=== PATIENT | female | born 1990 | race African-American/Black ===

== ENCOUNTER 2019-01-12 18:25 | Emergency (ER) | payer SELFPAY ==
[~2019-01-12] VITALS: Ht 165.1 cm; Wt 70.3 kg
[~2019-01-12 18:25] MED LIST: OXYC1TAB22 PO; [UNRECOGNIZED DRUG - CODE] SQ
[2019-01-12] MEDS ORDERED: IV NORMAL SALINE 1000ML BAG 1,000 ML IV ONE (19:00)
[2019-01-12] MEDS ORDERED: HYDROmorphone 2 MG/ML VIAL IV ONE ×3 (19:15→21:15)
[2019-01-12] MEDS ORDERED: diphenhydrAMINE HCL 25 MG CAPSULE PO ONE (19:30)
[2019-01-12] MEDS ORDERED: ONDANSETRON PF 4 MG/2 ML VIAL. IV ONE (19:30)
[2019-01-12 19:41] LABS: BILIRUBIN,URINE NEGATIVE (NEG); CLARITY,URINE CLEAR; COLOR,URINE YELLOW; NITRITE,URINE NEGATIVE (NEG); PROTEIN,URINE NEGATIVE (NEG-TRACE); UROBILINOGEN,URINE 0.2 mg/dL (0.2 mg/dL)
[2019-01-12 19:49] LABS: RBC,URINE 0 /HPF (0-2)
[2019-01-12 19:50] LABS: BACTERIA,URINE MANY /HPF (0-FEW); SQUAMOUS EPITHELIAL CELL,UR MANY /LPF; WBC,URINE 0 /HPF (0-4)
[2019-01-12 20:27] LABS: BASO # 0.2 x10^3/uL (0.0-0.2); BASO % 2 % (0-3); EOS # 0.2 x10^3/uL (0.0-0.7); EOS % 2 % (0-3); HEMOGLOBIN 9.5 g/dL (12.0-15.5); LYMPH # 4.7 x10^3/uL (1.0-4.8); LYMPH % 46 % (24-48); MEAN CORPUSCULAR HEMOGLOBIN 26 pg (25-35); MEAN CORPUSCULAR HGB CONC 34 g/dL (31-37); MEAN CORPUSCULAR VOLUME 76 fL (79-100); MONO # 0.4 x10^3/uL (0.0-1.1); MONO % 4 % (0-9); NEUT # 4.8 x10^3uL (1.8-7.7); NEUT % 47 % (31-73); PLATELET COUNT 526 x10^3/uL (140-400); RED CELL DISTRIBUTION WIDTH 30.7 % (11.5-14.5); WHITE BLOOD COUNT 10.2 x10^3/uL (4.0-11.0)
[2019-01-12 20:28] LABS: CALCIUM 8.4 mg/dL (8.5-10.1); CREATININE 0.6 mg/dL (0.6-1.0); GFR 145.1; POTASSIUM 3.8 mmol/L (3.5-5.1)
--- NOTE | 2019-01-12 20:31 | PHYS DOC ---
Past Medical History Past Medical History: Anxiety, Depression, Sickle Cell Disease, Other Additional Past Medical Histor: APHORESIS-REG BLOOD TRANSFUSIONS Past Surgical History: Cholecystectomy Additional Past Surgical Histo: port in right Additional Information: Nonsmoker Alcohol Use: Occasionally Drug Use: None Adult General Chief Complaint Chief Complaint: PAIN CONTROL HPI HPI 28-year-old female presents from out of town (from [place]) with report of sickle cell crisis to right arm which is been ongoing for the last 3 days. Patient reports she has been trialing treating it with her outpatient pain medication without improvement. Patient has a treatment plan from [facility] including Dilaudid 2mg IVP x 3 doses and PO Benadryl and 8mg IVP Zofran. Patient reports she thinks staying in the basement of her apartment might have set it off. Denies any chest pain. Denies . Reports last menstrual period was end of last week of November. Denies other complaint. Review of Systems Review of Systems Constitutional: Denies fever or chills Eyes: Denies redness or eye pain HENT: Denies nasal congestion or sore throat Respiratory: Denies cough or shortness of breath Cardiovascular: Denies chest pain or palpitations GI: Denies abdominal pain, nausea, or vomiting : Denies dysuria or hematuria Musculoskeletal: Reports right arm pain Integument: Denies rash or skin lesions Neurologic: Denies headache, focal weakness or sensory changes Complete systems were reviewed and found to be within normal limits, except as documented in this note. Current Medications Current Medications Current Medications Medications (Trade) Dose Ordered Sig/Miguel Start Time Stop Time Status Last Admin Dose Admin Diphenhydramine HCl (Benadryl) 50 mg 1X ONCE 01/12/19 19:30 01/12/19 19:31 DC 01/12/19 19:42 50 MG Hydromorphone HCl (Dilaudid) 2 mg 1X ONCE 01/12/19 21:15 01/12/19 21:16 DC 01/12/19 21:14 2 MG Ondansetron HCl (Zofran) 8 mg 1X ONCE 01/12/19 19:30 01/12/19 19:31 DC 01/12/19 19:42 8 MG Sodium Chloride 1,000 ml @ 1,000 mls/hr 1X ONCE 01/12/19 19:00 01/12/19 19:59 DC 01/12/19 19:41 1,000 MLS/HR Allergies Allergies Allergies Coded Allergies Type Severity Reaction Last Updated Verified morphine Allergy Intermediate ITCHING 01/12/19 Yes Physical Exam Physical Exam Constitutional: Well developed, well nourished, no acute distress, non-toxic appearance, uncomfortable HENT: Normocephalic, atraumatic, oropharynx moist Eyes: PERRL, EOMI, conjunctiva normal, no discharge Neck: Normal range of motion, no tenderness, supple Cardiovascular: Heart rate normal, regular rhythm Lungs & Thorax: Bilateral breath sounds clear to auscultation, no wheezing Abdomen: Soft, no tenderness Skin: Warm, dry, no erythema, no rash Extremities: No tenderness, ROM intact, no edema Neurologic: Alert and oriented X 3, normal motor function, normal sensory function, no focal deficits noted Psychologic: Affect normal, judgement normal Current Patient Data Vital Signs Vital Signs Date Time Temp Pulse Resp B/P (MAP) Pulse Ox O2 Delivery O2 Flow Rate FiO2 01/12/19 21:02 93 16 99 01/12/19 19:00 98.6 145/96 (112) Room Air 98.6 Lab Values Laboratory Tests Test 01/12/19 19:28 01/12/19 20:00 Urine Collection Type Unknown Urine Color Yellow Urine Clarity Clear Urine pH 6.0 Urine Specific [place] 1.015 Urine Protein Negative mg/dL (NEG-TRACE) Urine Glucose (UA) Negative mg/dL (NEG) Urine Ketones (Stick) Negative mg/dL (NEG) Urine Blood Negative (NEG) Urine Nitrite Negative (NEG) Urine Bilirubin Negative (NEG) Urine Urobilinogen Dipstick 0.2 mg/dL (0.2 mg/dL) Urine Leukocyte Esterase Negative (NEG) Urine RBC 0 /HPF (0-2) Urine WBC 0 /HPF (0-4) Urine Squamous Epithelial Cells Many /LPF Urine Bacteria Many /HPF (0-FEW) Urine Mucus Mod /LPF Urine Test Negative (NEG) White Blood Count 10.2 x10^3/uL (4.0-11.0) Red Blood Count 3.70 x10^6/uL (3.50-5.70) Hemoglobin 9.5 g/dL (12.0-15.5) L Hematocrit 28.0 % (36.0-47.0) L Mean Corpuscular Volume 76 fL (79-100) L Mean Corpuscular Hemoglobin 26 pg (25-35) Mean Corpuscular Hemoglobin Concent 34 g/dL (31-37) Red Cell Distribution Width 30.7 % (11.5-14.5) H Platelet Count 526 x10^3/uL (140-400) H Neutrophils (%) (Auto) 47 % (31-73) Lymphocytes (%) (Auto) 46 % (24-48) Monocytes (%) (Auto) 4 % (0-9) Eosinophils (%) (Auto) 2 % (0-3) Basophils (%) (Auto) 2 % (0-3) Neutrophils # (Auto) 4.8 x10^3uL (1.8-7.7) Lymphocytes # (Auto) 4.7 x10^3/uL (1.0-4.8) Monocytes # (Auto) 0.4 x10^3/uL (0.0-1.1) Eosinophils # (Auto) 0.2 x10^3/uL (0.0-0.7) Basophils # (Auto) 0.2 x10^3/uL (0.0-0.2) Platelet Estimate Pending Absolute Reticulocyte Count 0.105 x10^6/uL (0.020-0.120) Percent Reticulocyte Count 2.8 % (0.5-2.3) H Immature Reticulocyte Fraction 0.49 (0.20-0.60) Prothrombin Time 13.0 SEC (11.7-14.0) Prothrombin Time INR 1.0 (0.8-1.1) PTT 26 SEC (24-38) Sodium Level 139 mmol/L (136-145) Potassium Level 3.8 mmol/L (3.5-5.1) Chloride Level 106 mmol/L (98-107) Carbon Dioxide Level 24 mmol/L (21-32) Anion Gap 9 (6-14) Blood Urea Nitrogen 10 mg/dL (7-20) Creatinine 0.6 mg/dL (0.6-1.0) Estimated GFR (Cockcroft-Gault) 145.1 BUN/Creatinine Ratio 17 (6-20) Glucose Level 85 mg/dL (70-99) Calcium Level 8.4 mg/dL (8.5-10.1) L Magnesium Level 1.8 mg/dL (1.8-2.4) Total Bilirubin 0.2 mg/dL (0.2-1.0) Aspartate Amino Transferase (AST) 15 U/L (15-37) Alanine Aminotransferase (ALT) 16 U/L (14-59) Alkaline Phosphatase 59 U/L (46-116) Total Protein 7.8 g/dL (6.4-8.2) Albumin 3.3 g/dL (3.4-5.0) L Albumin/Globulin Ratio 0.7 (1.0-1.7) L Lipase 122 U/L (73-393) Laboratory Tests 01/12/19 20:00 Laboratory Tests 01/12/19 20:00 EKG EKG [] Radiology/Procedures Radiology/Procedures [] Course & Med Decision Making Course & Med Decision Making Pertinent Lab studies reviewed. (See chart for details) Patient presents with history of present illness and physical exam consistent for sickle cell crisis exacerbation. Denies chest pain. Patient presents a treatment plan from her physician. Pain/nausea addressed. IV fluid hydration provided. Labs obtained and posted to chart. Retic count percentage slightly elevated. Patient stable for discharge with outpatient follow-up with PCP. Patient advised to continue her previously prescribed pain medications going forward. Discussed findings and plan with patient, who acknowledges understanding and agreement. Dragon Disclaimer Dragon Disclaimer This electronic medical record was generated, in whole or in part, using a voice recognition dictation system. Departure Departure Impression: Primary Impression: Sickle cell pain crisis Disposition: HOME, SELF-CARE Condition: STABLE Referrals: UNKNOWN PCP NAME (PCP) Patient Instructions: Sickle Cell Pain Crisis, [id number] LEEANN MARTELL DO Jan 12, 2019 20:31
[2019-01-12 20:35] LABS: ALBUMIN 3.3 g/dL (3.4-5.0); ALBUMIN/GLOBULIN RATIO 0.7 (1.0-1.7); MAGNESIUM 1.8 mg/dL (1.8-2.4); TOTAL BILIRUBIN 0.2 mg/dL (0.2-1.0); TOTAL PROTEIN 7.8 g/dL (6.4-8.2)
[2019-01-12 20:39] LABS: U PREG PATIENT NEGATIVE (NEG)
[2019-01-12 21:02] VITALS: BP 115/79
[2019-01-12 21:25] LABS: % BANDS 1 % (0-9); % EOS 2 % (0-5); % LYMPHS 32 % (24-48); % MONOS 6 % (0-10); % SEGS 59 % (35-66)
[2019-01-12 21:28] LABS: ANISOCYTOSIS MARKED; PLT ESTIMATE INCREASED (ADEQUATE); POLYCHROMASIA SLIGHT; SCHISTOCYTES OCC; TARGET CELLS FEW
[2019-01-12 21:29] LABS: SICKLE CELLS OCC
== END 2019-01-12 21:33 | disposition home or self-care (01) ==
LOC: ER 18:25
DX: D57.00 Hb-SS disease with crisis, unspecified (principal); M79.601 Pain in right arm; F41.9 Anxiety disorder, unspecified; F32.9 Major depressive disorder, single episode, unspecified; Z90.49 Acquired absence of other specified parts of digestive tract; Z88.5 Allergy status to narcotic agent
CPT/HCPCS: 36415; 80053; 81001; 81025; 83690; 83735; 85007; 85025; 85045; 85610; 85730; 87086; 96374; 96375; 96376; 99285; J1170; J2405; J7030; Q0163

== ENCOUNTER 2021-06-04 16:48 | Inpatient (IN) | payer MEDICARE ==
[~2021-06-04] VITALS: Ht 167.6 cm; Wt 67.1 kg
--- NOTE | 2021-06-04 22:39 | PHYS DOC ---
Past Medical History Past Medical History: Anxiety, Depression, Sickle Cell Disease, Other Additional Past Medical Histor: APHORESIS-REG BLOOD TRANSFUSIONS, PE (EARLINE COVINGTON APRN) Past Surgical History: Cholecystectomy Additional Past Surgical Histo: port in right AND LEFT (EARLINE COVINGTON APRN) Smoking Status: Never Smoker Alcohol Use: Occasionally Drug Use: None (EARLINE COVINGTON APRN) General Adult EDM: Chief Complaint: OTHER COMPLAINTS HPI: HPI: Patient is a 31-year-old female that presents today with bilateral leg pain due to a sickle cell crisis. Patient states pain started 3 days ago and has progressively gotten worse, she had unable to control her pain at home with her home pain medications and came here for further management. Patient states she takes OxyContin 10 mg at home when she has a crisis and that has not been helping her pain. Patient denies chest pain or shortness of air, she states she has had some nausea. She states her last crisis was in April 2021 and she was [facility], she states that she normally will get Dilaudid 2 mg x 3 doses, by mouth Benadryl, and IV fluids. Patient states that usually that will help with her pain. She is trying to est ablish care with the [facility] (EARLINE COVINGTON DIRECTOR OF FUNDRAISING) Review of Systems: Review of Systems: Constitutional: Denies fever or chills. [] Eyes: Denies change in visual acuity. [] HENT: Denies nasal congestion or sore throat. [] Respiratory: Denies cough or shortness of breath. [] Cardiovascular: Denies chest pain or edema. [] GI: Denies abdominal pain, nausea, vomiting, bloody stools or diarrhea. [] : Denies dysuria. [] Musculoskeletal: Bilateral leg pain Integument: Denies rash. [] Neurologic: Denies headache, focal weakness or sensory changes. [] Endocrine: Denies polyuria or polydipsia. [] Lymphatic: Denies swollen glands. [] Psychiatric: Denies depression or anxiety. [] (EARLINE COVINGTON DIRECTOR OF FUNDRAISING) Heart Score: C/O Chest Pain: N/A Risk Factors: Risk Factors: DM, Current or recent (<one month) smoker, HTN, HLP, family history of CAD, obesity. Risk Scores: Score 0 - 3: 2.5% MACE over next 6 weeks - Discharge Home Score 4 - 6: 20.3% MACE over next 6 weeks - Admit for Clinical Observation Score 7 - 10: 72.7% MACE over next 6 weeks - Early Invasive Strategies (EARLINE COVINGTON APRN) Current Medications: Current Medications Medications (Trade) Dose Ordered Sig/Miguel Start Time Stop Time Status Last Admin Dose Admin Diphenhydramine HCl (Benadryl) 25 mg 1X ONCE 06/04/21 23:00 06/04/21 23:01 Hydromorphone HCl (Dilaudid) 2 mg 1X ONCE 06/04/21 23:00 06/04/21 23:01 Ondansetron HCl (Zofran) 4 mg 1X ONCE 06/04/21 23:00 06/04/21 23:01 Sodium Chloride 1,000 ml @ 999 mls/hr 1X ONCE 06/04/21 23:00 06/05/21 00:00 (EARLINE COVINGTON APRN) Allergies: Allergies: Allergies Coded Allergies Type Severity Reaction Last Updated Verified morphine Allergy Intermediate ITCHING 01/12/19 Yes (EARLINE COVINGTON APRN) Physical Exam: PE: Constitutional: Well developed, well nourished, moderate distress HENT: Normocephalic, atraumatic, bilateral external ears normal, oropharynx moist, no oral exudates, nose normal. [] Eyes: PERRLA, EOMI, conjunctiva normal, no discharge. [] Neck: Normal range of motion, no tenderness, supple, no stridor. [] Cardiovascular:Heart rate regular rhythm, no murmur , pedal pulses 2+ Lungs & Thorax: Bilateral breath sounds clear to auscultation [] Abdomen: Bowel sounds normal, soft, no tenderness, no masses, no pulsatile masses. [] Skin: Warm, dry, no erythema, no rash. [] Back: No tenderness, no CVA tenderness. [] Extremities: No tenderness, no cyanosis, no clubbing, ROM intact, no edema. [] Neurologic: Alert and oriented X 3, normal motor function, normal sensory function, no focal deficits noted. [] Psychologic: Affect normal, judgement normal, mood normal. [] (EARLINE COVINGTON APRN) Current Patient Data: Labs: Laboratory Tests Test 06/04/21 22:00 White Blood Count 12.4 x10^3/uL Red Blood Count 4.38 x10^6/uL Hemoglobin 9.1 g/dL Hematocrit 28.9 % Mean Corpuscular Volume 65 fL Mean Corpuscular Hemoglobin 21 pg Mean Corpuscular Hemoglobin Concent 31 g/dL Red Cell Distribution Width 34.1 % Platelet Count 403 x10^3/uL Neutrophils (%) (Auto) 50 % Lymphocytes (%) (Auto) 44 % Monocytes (%) (Auto) 5 % Eosinophils (%) (Auto) 1 % Basophils (%) (Auto) 1 % Neutrophils # (Auto) 6.1 x10^3/uL Lymphocytes # (Auto) 5.4 x10^3/uL Monocytes # (Auto) 0.6 x10^3/uL Eosinophils # (Auto) 0.1 x10^3/uL Basophils # (Auto) 0.1 x10^3/uL Platelet Estimate Adequate Polychromasia Slight Hypochromasia Marked Poikilocytosis Slight Anisocytosis Marked Microcytosis Marked Spherocytes Mod Target Cells Many Schistocytes Occ Absolute Reticulocyte Count 0.072 x10^6/uL Percent Reticulocyte Count 1.7 % Immature Reticulocyte Fraction 0.51 Sodium Level 137 mmol/L Potassium Level 3.6 mmol/L Chloride Level 104 mmol/L Carbon Dioxide Level 25 mmol/L Anion Gap 8 Blood Urea Nitrogen 7 mg/dL Creatinine 0.6 mg/dL Estimated GFR (Cockcroft-Gault) 142.0 BUN/Creatinine Ratio 12 Glucose Level 86 mg/dL Calcium Level 8.3 mg/dL Total Bilirubin 0.4 mg/dL Aspartate Amino Transf (AST/SGOT) 17 U/L Alanine Aminotransferase (ALT/SGPT) 17 U/L Alkaline Phosphatase 76 U/L Total Protein 8.4 g/dL Albumin 3.6 g/dL Albumin/Globulin Ratio 0.8 Current Medications Medications (Trade) Dose Ordered Sig/Miguel Route PRN Reason Start Time Stop Time Status Last Admin Dose Admin Sodium Chloride 1,000 ml @ 999 mls/hr 1X ONCE IV 06/04/21 23:00 06/05/21 00:00 DC 06/04/21 23:08 Hydromorphone HCl (Dilaudid) 2 mg 1X ONCE IVP 06/04/21 23:00 06/04/21 23:01 DC 06/04/21 23:10 Diphenhydramine HCl (Benadryl) 25 mg 1X ONCE PO 06/04/21 23:00 06/04/21 23:01 DC 06/04/21 23:11 Ondansetron HCl (Zofran) 4 mg 1X ONCE IVP 06/04/21 23:00 06/04/21 23:01 DC 06/04/21 23:11 Hydromorphone HCl (Dilaudid) 2 mg 1X ONCE IVP 06/05/21 01:00 06/05/21 01:01 06/05/21 00:45 Vital Signs: Vital Signs Date Time Temp Pulse Resp B/P (MAP) Pulse Ox O2 Delivery O2 Flow Rate FiO2 06/04/21 21:42 98.7 85 20 117/63 (81) 99 Room Air 98.7 (EARLINE COVINGTON APRN) EKG: EKG: [] (EARLINE COVINGTON APRN) Radiology/Procedures: Radiology/Procedures: [] (EARLINE COVINGTON APRN) Course & Med Decision Making: Course & Med Decision Making Pertinent Labs and Imaging studies reviewed. (See chart for details) 0055 reassessed patient patient continues to have pain was just given a second dose of Dilaudid 2 mg, spoke with patient about possibly admitting for pain control patient is requesting that we wait to see if this pain medication helps. Signed patient out to Dr. Mathis. [] (EARLINE COVINGTON APRN) Course & Med Decision Making Patient reports pain is still present. Will admit for sickle cell pain crisis. I have spoken with the patient and/or caregivers. I have explained the patient's condition, diagnosis and treatment plan based on the information available to me at this time. I have answered the patient's and/or caregivers questions and answered any concerns. The patient and/or caregivers have as good an understanding of the patient's diagnosis, condition and treatment plan as can be expected at this point. The patient has been stabilized within the capability of the emergency department. The patient will be transported for further care and management or will be moved to an observation or inpatient service. I have communicated with the staff or medical practitioner taking over this patient's care. (JENIFFER MATHIS DO) Dragon Disclaimer: Dragon Disclaimer: This electronic medical record was generated, in whole or in part, using a voice recognition dictation system. (EARLINE COVINGTON APRN) Departure Departure Impression: Primary Impression: Sickle cell pain crisis Disposition: ADMITTED INPATIENT Admitting Physician: DONELL (Dr. summers) (JENIFFER MATHIS DO) Condition: STABLE Referrals: NO PCP (PCP) EARLINE COVINGTON APRN Jun 04, 2021 22:39 JENIFFER MATHIS DO Jun 05, 2021 02:19
[2021-06-04] MEDS ORDERED: ONDANSETRON PF 4 MG/2 ML VIAL. IVP ONE (23:00)
[2021-06-04] MEDS ORDERED: HYDROmorphone 2 MG/ML VIAL IVP ONE (23:00)
[2021-06-04] MEDS ORDERED: diphenhydrAMINE HCL 25 MG CAPSULE PO ONE (23:00)
[2021-06-04] MEDS ORDERED: IV NORMAL SALINE 1000ML BAG 1,000 ML IV ONE (23:00)
[2021-06-04 23:02] LABS: BASO # 0.1 x10^3/uL (0.0-0.2); BASO % 1 % (0-3); EOS # 0.1 x10^3/uL (0.0-0.7); EOS % 1 % (0-3); HEMATOCRIT 28.9 % (36.0-47.0); HEMOGLOBIN 9.1 g/dL (12.0-15.5); LYMPH # 5.4 x10^3/uL (1.0-4.8); LYMPH % 44 % (24-48); MEAN CORPUSCULAR HEMOGLOBIN 21 pg (25-35); MEAN CORPUSCULAR HGB CONC 31 g/dL (31-37); MEAN CORPUSCULAR VOLUME 65 fL (79-100); MONO # 0.6 x10^3/uL (0.0-1.1); MONO % 5 % (0-9); NEUT # 6.1 x10^3/uL (1.8-7.7); NEUT % 50 % (31-73); PLATELET COUNT 403 x10^3/uL (140-400); RED BLOOD COUNT 4.42 x10^6/uL (3.50-5.40); RED CELL DISTRIBUTION WIDTH 34.1 % (11.5-14.5); WHITE BLOOD COUNT 12.4 x10^3/uL (4.0-11.0)
[2021-06-04 23:09] LABS: CALCIUM 8.3 mg/dL (8.5-10.1); CREATININE 0.6 mg/dL (0.6-1.0); POTASSIUM 3.6 mmol/L (3.5-5.1)
[2021-06-04 23:16] LABS: ALBUMIN 3.6 g/dL (3.4-5.0); ALBUMIN/GLOBULIN RATIO 0.8 (1.0-1.7); TOTAL BILIRUBIN 0.4 mg/dL (0.2-1.0); TOTAL PROTEIN 8.4 g/dL (6.4-8.2)
[2021-06-04 23:39] LABS: PLT ESTIMATE ADEQUATE (ADEQUATE)
[2021-06-04 23:40] LABS: ANISOCYTOSIS MARKED; HYPOCHROMIA MARKED; MICROCYTOSIS MARKED; POIKILOCYTOSIS SLIGHT; POLYCHROMASIA SLIGHT
[2021-06-04 23:42] LABS: TARGET CELLS MANY
[2021-06-04 23:43] LABS: SCHISTOCYTES OCC; SPHEROCYTES MOD
[2021-06-05] MEDS ORDERED: HYDROmorphone 2 MG/ML VIAL IVP ONE ×2 (01:00→03:00)
[2021-06-05] MEDS ORDERED: KETOROLAC 15 MG/ML VIAL. IVP ONE (01:30)
[2021-06-05] MEDS ORDERED: IV NORMAL SALINE 1000ML BAG 1,000 ML IV ONE (03:00)
[2021-06-05] MEDS ORDERED: IV NORMAL SALINE 1000ML BAG 1,000 ML IV SCH (04:00)
[2021-06-05 04:20] VITALS: BP 150/90
[2021-06-05] MEDS ORDERED: OXYC1TAB22 PO (05:10)
[2021-06-05] MEDS ORDERED: RIVA20TA2 PO (05:10)
[2021-06-05] MEDS ORDERED: FOLI0.8C PO (05:10)
[2021-06-05] MEDS ORDERED: HYDROmorphone 2 MG/ML VIAL IVP PRN (06:30)
[2021-06-05 07:00] VITALS: BP 119/91
[2021-06-05] MEDS: diphenhydrAMINE 50 MG/ML VIAL IVP PRN ×3 (07:02→20:06)
--- NOTE | 2021-06-05 10:56 | NUR ---
SW following. Discussed with RN, pt from home, room air, regular diet. Pt newly admitted, awaiting plan of care. RN advised no SW needs at this time. SW will continue to follow.
[2021-06-05 11:00] VITALS: BP 129/84
--- NOTE | 2021-06-05 11:24 | HP ---
DATE OF SERVICE: 06/05/2021 ADMIT DATE: 06/05/2021 CHIEF COMPLAINT: Diffuse pain. HISTORY OF PRESENT ILLNESS: The patient is a pleasant 31-year-old female who has had sickle cell disease since she was 6 months old. She states she has been on chronic narcotics most of her life. She presented to the ER last night with leg pain and weakness and overall diffuse body aches. It progressively got worse over the past few days, rated at 10/10. I discussed the case with the ER physician. We have admitted the patient for sickle cell crisis treatment and we are going to be consulting Hematology. PAST MEDICAL HISTORY: Sickle cell disease, anxiety, depression, apheresis, pulmonary emboli, acute chest syndrome, sepsis, cholecystectomy, port in the right and left chest wall. ALLERGIES: MORPHINE. FAMILY HISTORY: Diabetes. SOCIAL HISTORY: She does not drink, smoke or take drugs. MEDICATIONS: Reviewed, please refer to the MRAD. REVIEW OF SYSTEMS: GENERAL: She complains of diffuse body aches. SKIN: No bruising, hair changes or rashes. EYES: No blurred, double or loss of vision. NOSE AND THROAT: No history of nosebleeds, hoarseness or sore throat. HEART: No history of palpitations, chest pain or shortness of breath on exertion. LUNGS: Denies cough, hemoptysis, wheezing or shortness of breath. GASTROINTESTINAL: Denies changes in appetite, nausea, vomiting, diarrhea or constipation. GENITOURINARY: No history of frequency, urgency, hesitancy or nocturia. NEUROLOGIC: Denies history of numbness, tingling, tremor or weakness. PSYCHIATRIC: No history of panic, anxiety or depression. ENDOCRINE: No history of heat or cold intolerance, polyuria or polydipsia. EXTREMITIES: Denies muscle weakness, joint pain, pain on walking or stiffness. PHYSICAL EXAMINATION: VITALS: Within normal limits and are stable. GENERAL: No apparent distress. Alert and oriented. HEENT: Normal cephalic atraumatic, external auditory canals are patent. Eyes: Extraocular muscles are intact, pupils are equally round and reactive to light and accommodation. MUSCULOSKELETAL: Well developed, well nourished, good range of motion. ENDOCRINE: No thyromegaly was palpated. LYMPHATICS: No cervical chain or axillary nodes were noted. HEMATOPOIETIC: No bruising. NECK: Supple, no JVD, no thyromegaly was noted. LUNGS: Clear to auscultation in all lung noyola without rhonchi or wheezing. HEART: RRR, S1, S2 present. Peripheral pulses intact, no obvious murmurs were noted. ABDOMEN: Soft, nontender. Positive bowel sounds no organomegaly, normal bowel sounds. EXTREMITIES: Without any cyanosis, clubbing, or edema. Pedal pulses intact, Homans sign is negative. NEUROLOGIC: Normal speech, normal tone. A and O x 3, moves all extremities, no obvious focal deficits. PSYCHIATRIC: Normal affect, normal mood. Stable. SKIN: No ulcerations or rashes, good skin turgor, no jaundice. VASCULAR: Good capillary refill, neurovascular bundle appears to be intact. LABORATORY DATA: White count is 12.4, hemoglobin 9.1, platelets 403. Retic count 1.7. Electrolytes are normal. ASSESSMENT AND PLAN: Diffuse body aches in a middle-aged female who has sickle cell disease, suspect possible sickle cell flare, although with her retic count only 1.7, I am not sure. For now, we are going to give her the benefit of doubt. I have resumed her home medicines including some Dilaudid 2 q. 2 p.r.n. We will trend her labs. I have consulted Dr. Rutherford. Home meds. DVT prophylaxis. Full code. I have ordered folic acid, IV fluids. FARHANA/WILLIS GALEANO: FARHANA/catrachito TID: [id number]
[2021-06-05] MEDS: HYDROmorphone 2 MG/ML VIAL IVP PRN ×5 (11:49→23:17)
[2021-06-05 15:00] VITALS: BP 125/93
[2021-06-05] MEDS: RIVAROXABAN 10 MG TABLET. PO SCH (18:00)
[2021-06-05 19:00] VITALS: BP 129/77
[2021-06-05] MEDS: IV NORMAL SALINE 1000ML BAG 1,000 ML IV SCH (19:35)
[2021-06-05 23:00] VITALS: BP 120/80
[2021-06-06 03:00] VITALS: BP 121/80
[2021-06-06] MEDS: HYDROmorphone 2 MG/ML VIAL IVP PRN ×5 (03:18→20:18)
[2021-06-06] MEDS: diphenhydrAMINE 50 MG/ML VIAL IVP PRN ×3 (03:20→19:40)
[2021-06-06 07:00] VITALS: BP 120/67
[2021-06-06] MEDS: FOLIC ACID 1 MG TABLET. PO SCH (07:57)
[2021-06-06] MEDS: IV NORMAL SALINE 1000ML BAG 1,000 ML IV SCH ×2 (07:58→19:43)
[2021-06-06] MEDS: oxyCODONE/APAP 10/325 1 TAB TABLET PO PRN ×2 (10:34→16:45)
--- NOTE | 2021-06-06 10:46 | PDOC ---
[employer] PROGRESS NOTE Date of Service DOS: DATE: 06/06/21 TIME: 10:44 Chief Complaint Chief Complaint Intractable pain Sickle cell crisis Sickle cell disease, anxiety, depression, apheresis, pulmonary emboli, acute chest syndrome, sepsis, cholecystectomy, port in the right and left chest wall. History of Present Illness History of Present Illness 06/06/2021 Patient seen and examined Discussed with RN Chart reviewed Vitals/I&O Vitals/I&O: Vital Signs Date Time Temp Pulse Resp B/P (MAP) Pulse Ox O2 Delivery O2 Flow Rate FiO2 06/06/21 08:00 Room Air 06/06/21 07:00 98.1 66 18 120/67 (84) 98 98.1 I & O 06/05/21 06/05/21 06/06/21 15:00 23:00 07:00 Intake Total 300 ml 480 ml Output Total 600 ml 1700 ml Balance -300 ml -1220 ml Physical Exam General: Alert, mild distress Heart: Regular rate Lungs: Clear Abdomen: Normal bowel sounds Extremities: No cyanosis Skin: No rashes Labs Labs: Laboratory Tests Test 06/05/21 12:54 Red Blood Count 4.36 x10^6/uL (3.50-5.70) Absolute Reticulocyte Count 0.061 x10^6/uL (0.020-0.120) Percent Reticulocyte Count 1.4 % (0.5-2.3) Immature Reticulocyte Fraction 0.53 (0.20-0.60) Assessment and Plan Assessmemt and Plan Problems Medical Problems: (1) Sickle cell pain crisis Status: Acute Intractable pain Sickle cell crisis Sickle cell disease, anxiety, depression, apheresis, pulmonary emboli, acute chest syndrome, sepsis, cholecystectomy, port in the right and left chest wall. Plan Sickle cell crisis protocol IV fluids Oxygen Folic acid Plus minus hydroxyurea depending on what hematology says As needed Dilaudid Trend labs especially her reticulocyte count Home meds DVT prophylaxis Full code Awaiting hematology input Comment Review of Relevant I have reviewed the following items michael (where applicable) has been applied. Medications: Current Medications Medications (Trade) Dose Ordered Sig/Miguel Route PRN Reason Start Time Stop Time Status Last Admin Dose Admin Hydromorphone HCl (Dilaudid) 2 mg PRN Q2HRS PRN IVP SEVERE PAIN 7-10 06/05/21 11:00 06/06/21 07:57 Folic Acid (Folic Acid) 1 mg DAILY PO 06/06/21 09:00 06/06/21 07:57 Sodium Chloride 1,000 ml @ 75 mls/hr [id number] IV 06/05/21 11:00 06/06/21 07:58 Oxycodone/ Acetaminophen (Percocet 10/325) 1 tab PRN Q6HRS PRN PO PAIN 06/06/21 10:15 06/06/21 10:34 Justifications for Admission Other Justification KRISHNA DENNY III DO Jun 06, 2021 10:46
[2021-06-06 11:00] VITALS: BP 126/77
[2021-06-06 15:00] VITALS: BP 135/85
[2021-06-06] MEDS: RIVAROXABAN 10 MG TABLET. PO SCH (18:00)
[2021-06-06 19:00] VITALS: BP 128/88
[2021-06-06 23:00] VITALS: BP 126/81
[2021-06-07] MEDS: oxyCODONE/APAP 10/325 1 TAB TABLET PO PRN ×3 (00:40→12:40)
[2021-06-07] MEDS: HYDROmorphone 2 MG/ML VIAL IVP PRN ×2 (02:11→08:50)
[2021-06-07] MEDS: diphenhydrAMINE 50 MG/ML VIAL IVP PRN ×2 (02:14→08:51)
[2021-06-07 03:09] VITALS: BP 137/95
[2021-06-07 07:00] VITALS: BP 123/74
[2021-06-07] MEDS: IV NORMAL SALINE 1000ML BAG 1,000 ML IV SCH (08:50)
[2021-06-07] MEDS: FOLIC ACID 1 MG TABLET. PO SCH (08:51)
[2021-06-07] MEDS ORDERED: HYDR2TAB31 PO (10:39)
[2021-06-07 11:00] VITALS: BP 141/94
--- NOTE | 2021-06-07 12:54 | DS ---
DATE OF DISCHARGE: 06/07/2021 ADMISSION DIAGNOSIS: Sickle cell crisis. DISCHARGE DIAGNOSES: Resolving sickle cell crisis, history of chronic pain, history of narcotic dependence, history of sepsis, history of acute chest syndrome, anxiety, depression, apheresis, history of pulmonary emboli, history of cholecystectomy, ports in the right chest and left chest, chronic anticoagulation. CONSULTS: Hematology. PROCEDURES: None. HOSPITAL COURSE: The patient is a pleasant, middle-aged female who presented with a sickle cell crisis. We gave her sickle cell protocol including oxygen, IV fluids, vitamins, p.r.n. pain meds and I checked her retic count daily. Basically, today she is back to her baseline and wants to go home. We plan to discharge. DISPOSITION: Home. ACTIVITY: As tolerated. DIET: Low sodium. MEDICATIONS: We will continue her home medications but she states she is out of her oxycodone other than 2 tablets. She states Dilaudid has been working better, so I gave her a prescription for 2 mg tablets, #20 one q.6 p.r.n. Continue her home Xarelto and her folic acid 10 mg a day. Total time 32 minutes. FARHANA/ZAY/PAUL DR: FARHANA/catrachito TID: [id number]
[2021-06-07 15:00] VITALS: BP 107/67
[2021-06-07] MEDS ORDERED: HEPARIN PF 500 UNIT/5 ML DISP.SYRIN. IVP ONE (16:00)
--- NOTE | 2021-06-07 16:32 | NUR ---
patient ready for discharge. R chest port flushed w/ heparin and de-accessed, needle intact. meds and follow up reviewed. prescription for PO dilaudid sent to pharmacy on file. pt does state she has 3 more percocet 10 at home. RN advised these should not be taken with dilaudid, that she is to take one or the other. patient verbalized understanding. stable upon dc. escorted out by ANGELA Cowan.
== END 2021-06-07 16:35 | disposition home or self-care (01) | DRG 812 ==
LOC: ER 16:48 → 5 SOUTH 06-05 02:14
PROVIDERS: ADMIT Internal Medicine; ATTEND Internal Medicine
DX: D57.09 Hb-SS disease with crisis with other specified complication (principal); F32.A Depression, unspecified; F41.9 Anxiety disorder, unspecified; Z79.01 Long term (current) use of anticoagulants; Z83.3 Family history of diabetes mellitus; Z86.711 Personal history of pulmonary embolism; Z90.49 Acquired absence of other specified parts of digestive tract; G89.29 Other chronic pain; Z87.891 Personal history of nicotine dependence
CPT/HCPCS: 36415; 80053; 85025; 85045; 96361; 96374; 96375; 96376; J1170; J1200; J1642; J2405; J7030; 99285-25; G0378; Q0163

== ENCOUNTER 2021-06-15 09:35 | Emergency (ER) | payer MEDICARE ==
[~2021-06-15] VITALS: Ht 162.6 cm; Wt 65.0 kg
[~2021-06-15 09:35] MED LIST changes: +FOLI0.8C PO; +HYDR2TAB31 PO; +RIVA20TA2 PO
[2021-06-15] MEDS ORDERED: 0.9 % SOD CHL for STERILE FIELD 10 ML DISP.SYRIN. ONE ×2 (10:22→10:41)
[2021-06-15] MEDS ORDERED: HYDROmorphone 2 MG/ML VIAL IVP ONE ×2 (10:30→12:00)
[2021-06-15] MEDS ORDERED: IV NORMAL SALINE 1000ML BAG 1,000 ML IV ONE (10:30)
[2021-06-15] MEDS ORDERED: diphenhydrAMINE 50 MG/ML VIAL IVP ONE (10:30)
--- NOTE | 2021-06-15 10:30 | PHYS DOC ---
Past Medical History Past Medical History: Anxiety, Depression, Sickle Cell Disease, Other Additional Past Medical Histor: APHORESIS-REG BLOOD TRANSFUSIONS, PE Past Surgical History: Cholecystectomy Additional Past Surgical Histo: port in right AND LEFT Smoking Status: Former Smoker Alcohol Use: Occasionally Drug Use: None General Adult EDM: Chief Complaint: PAIN CONTROL HPI: HPI: Patient is a 31-year-old female who presents emergency department for right leg pain. She reports that this is consistent with her sickle cell pain in the same location where she always has her pain. Patient reports that her last time she had her reticulocyte count was on June 07 when she was inpatient at this facility. After reviewing patient's chart, it appears that she was admitted and discharged on June 07 for sickle cell crisis and pain. Patient reports that she used to take 10 mg of Percocet at home but she is out of them. Patient has an appointment on at [facility] sickle cell clinic. Patient rates her pain 8 out of 10. No treatment prior to arrival. Patient denies shortness of breath, chest pain, nausea, vomiting. Patient is requesting Benadryl. Her vital signs are stable and she is in no acute distress. Review of Systems: Review of Systems: Respiratory: See HPI Cardiovascular: See HPI GI: See HPI Musculoskeletal: HPI Heart Score: C/O Chest Pain: No Risk Factors: Risk Factors: DM, Current or recent (<one month) smoker, HTN, HLP, family history of CAD, obesity. Risk Scores: Score 0 - 3: 2.5% MACE over next 6 weeks - Discharge Home Score 4 - 6: 20.3% MACE over next 6 weeks - Admit for Clinical Observation Score 7 - 10: 72.7% MACE over next 6 weeks - Early Invasive Strategies Current Medications: Current Medications Medications (Trade) Dose Ordered Sig/Miguel Start Time Stop Time Status Last Admin Dose Admin Sodium Chloride (NORMAL SALINE FLUSH for STERILE FIELD) 10 ml STK-MED ONCE 06/15/21 10:22 06/15/21 10:22 DC Allergies: Allergies: Allergies Coded Allergies Type Severity Reaction Last Updated Verified morphine Allergy Intermediate ITCHING 01/12/19 Yes Physical Exam: PE: Constitutional: Well developed, well nourished, no acute distress, non-toxic appearance. [] HENT: Normocephalic, atraumatic, bilateral external ears normal, oropharynx moist, no oral exudates, nose normal. [] Eyes: PERRL, EOMI, conjunctiva normal, no discharge. [] Neck: Normal range of motion, no tenderness, supple, no stridor. [] Cardiovascular:Heart rate regular rhythm, no murmur [] Lungs & Thorax: Bilateral breath sounds clear to auscultation [] Abdomen: Bowel sounds normal, soft, no tenderness, no masses, no pulsatile masses. [] Skin: Warm, dry, no erythema, no rash. [] Back: Normal range of motion Extremities: No tenderness, no cyanosis, no clubbing, ROM intact, no edema. [] Neurologic: Alert and oriented X 3, normal motor function, normal sensory function, no focal deficits noted. [] Psychologic: Affect normal, judgement normal, mood normal. [] Current Patient Data: Labs: Laboratory Tests Test 06/15/21 10:22 06/15/21 10:23 06/15/21 10:45 Urine Collection Type Void Urine Color Yellow Urine Clarity Clear Urine pH 6.5 Urine Specific [place] 1.020 Urine Protein 100 mg/dL Urine Glucose (UA) Negative mg/dL Urine Ketones (Stick) Negative mg/dL Urine Blood Negative Urine Nitrite Negative Urine Bilirubin Negative Urine Urobilinogen Dipstick 0.2 mg/dL Urine Leukocyte Esterase Negative Urine RBC 0 /HPF Urine WBC 1-4 /HPF Urine Squamous Epithelial Cells Mod /LPF Urine Bacteria 0 /HPF Urine Mucus Slight /LPF Bedside Urine HCG, Qualitative Hcg negative White Blood Count 10.8 x10^3/uL Red Blood Count 4.45 x10^6/uL Hemoglobin 9.1 g/dL Hematocrit 29.0 % Mean Corpuscular Volume 64 fL Mean Corpuscular Hemoglobin 20 pg Mean Corpuscular Hemoglobin Concent 31 g/dL Red Cell Distribution Width 33.0 % Platelet Count 331 x10^3/uL Neutrophils (%) (Auto) 59 % Lymphocytes (%) (Auto) 35 % Monocytes (%) (Auto) 4 % Eosinophils (%) (Auto) 1 % Basophils (%) (Auto) 1 % Neutrophils # (Auto) 6.4 x10^3/uL Lymphocytes # (Auto) 3.8 x10^3/uL Monocytes # (Auto) 0.4 x10^3/uL Eosinophils # (Auto) 0.1 x10^3/uL Basophils # (Auto) 0.1 x10^3/uL Platelet Estimate Pending Absolute Reticulocyte Count 0.067 x10^6/uL Percent Reticulocyte Count 1.5 % Immature Reticulocyte Fraction 0.55 Sodium Level 141 mmol/L Potassium Level 3.3 mmol/L Chloride Level 106 mmol/L Carbon Dioxide Level 25 mmol/L Anion Gap 10 Blood Urea Nitrogen 5 mg/dL Creatinine 0.7 mg/dL Estimated GFR (Cockcroft-Gault) 118.9 BUN/Creatinine Ratio 7 Glucose Level 90 mg/dL Calcium Level 8.1 mg/dL Total Bilirubin 0.5 mg/dL Aspartate Amino Transf (AST/SGOT) 16 U/L Alanine Aminotransferase (ALT/SGPT) 14 U/L Alkaline Phosphatase 79 U/L Total Protein 7.9 g/dL Albumin 3.4 g/dL Albumin/Globulin Ratio 0.8 Current Medications Medications (Trade) Dose Ordered Sig/Miguel Route PRN Reason Start Time Stop Time Status Last Admin Dose Admin Sodium Chloride (NORMAL SALINE FLUSH for STERILE FIELD) 10 ml STK-MED ONCE .ROUTE 06/15/21 10:22 06/15/21 10:22 DC Sodium Chloride 1,000 ml @ 1,000 mls/hr 1X ONCE IV 06/15/21 10:30 06/15/21 11:29 DC 06/15/21 10:46 Diphenhydramine HCl (Benadryl) 25 mg 1X ONCE IVP 06/15/21 10:30 06/15/21 10:31 DC 06/15/21 10:46 Hydromorphone HCl (Dilaudid) 2 mg 1X ONCE IVP 06/15/21 10:30 06/15/21 10:31 DC 06/15/21 10:46 Sodium Chloride (NORMAL SALINE FLUSH for STERILE FIELD) 10 ml STK-MED ONCE .ROUTE 06/15/21 10:41 06/15/21 10:41 DC Ondansetron HCl (Zofran) 4 mg 1X ONCE IVP 06/15/21 11:00 06/15/21 11:01 DC 06/15/21 11:23 Potassium Chloride (Klor-Con) 20 meq 1X ONCE PO 06/15/21 12:00 06/15/21 12:01 DC 06/15/21 12:14 Hydromorphone HCl (Dilaudid) 2 mg 1X ONCE IVP 06/15/21 12:00 06/15/21 12:01 DC 06/15/21 12:23 Vital Signs: Vital Signs Date Time Temp Pulse Resp B/P (MAP) Pulse Ox O2 Delivery O2 Flow Rate FiO2 06/15/21 10:05 97.8 81 12 118/79 (92) 100 Room Air 97.8 EKG: EKG: [] Radiology/Procedures: Radiology/Procedures: [] Course & Med Decision Making: Course & Med Decision Making Pertinent Labs and Imaging studies reviewed. (See chart for details) [] Patient presents to the emergency department for right leg pain. She reports that she has this pain with her sickle cell. Patient follows up on at [facility] with her sickle cell clinic. She is out of her pain medication at home and she normally takes 10 mg of Percocets. Patient denies any chest pain, shortness of breath, nausea or vomiting. Patient has no signs of dehydration as she is nontachycardic and has moist mucous membranes. Blood work performed in the ER to rule out sickle cell crisis. Patient treated with IV fluids, pain medication. Patient is requesting Benadryl. After reviewing patient's chart, it appears that when she was discharged from this facility on June 07, she was given 2 mg Dilaudid prescription for 5 days. Patient's hemoglobin, hematocrit and reticulocyte counts is consistent with previous lab findings. She was noted to have mild hypokalemia and this was replaced in the ER. Patient does not have any findings of aplastic crisis. Following treatment in the emergency department with IV pain medication, patient reports that she h as improvement in her pain. She reports that she would like to be discharged home. Patient is requesting pain medication to go home with, patient will need to follow-up with a pain management doctor if she requires any additional pain medication. I discussed with patient all findings and diagnostic testing as well as the need to follow-up with PCP for further evaluation and treatment or return to the ER if any new or worsening symptoms. Strict return precautions were also discussed at length. Patient voiced understanding and agreement with the plan. Patient is hemodynamically stable at the time of disposition. Dragon Disclaimer: Jose Disclaimer: This electronic medical record was generated, in whole or in part, using a voice recognition dictation system. Departure Departure Impression: Primary Impression: Sickle cell anemia with pain Disposition: HOME / SELF CARE / HOMELESS Condition: GOOD Referrals: NO PCP (PCP) Patient Instructions: Musculoskeletal Pain, Sickle Cell Anemia-Brief Additional Instructions: You were seen in the emergency department for pain control. Your lab work was consistent with previous lab findings it does not appear that you are in aplast ic crisis at this time. You are noted to have mildly decreased potassium level and this was replaced in the ER. Ensure that you are eating foods rich in potassium like bananas. You will need to follow-up with the pain management doctor if you are requiring any pain medication for your chronic disease. Follow-up with [facility] on as previously scheduled. Increase your fluids and ensure adequate hydration. Return to the emergency department if you develop worsening of your pain, shortness of breath, chest pain, intractable nausea or vomiting. EMERGENCY DEPARTMENT GENERAL DISCHARGE INSTRUCTIONS Thank you for coming to [facility] Emergency Department (ED) today and trusting us with you care. We trust that you had a positive experience in our Emergency Department. If you wish to speak to the department management, you may call the Director at [phone]. YOUR FOLLOW UP INSTRUCTIONS ARE FOLLOWS: 1. Do you have a private Doctor? If you do not have a private doctor, please ask for a resource list of physicians or clinics that may be able to assist you with follow up care. 2. The Emergency Physicain has interpreted your x-rays. The X-Ray specialist will also review them. If there is a change in the findings, you will be notified in 48 hours when at all possible. 3. A lab test or culture has been done, your results will be reviewed and you will be notified if you need a change in treatment. ADDITIONAL INSTRUCTIONS AND INFORMATION: 1. Your care today has been supervised by a physician who is specially trained in emergency care. Many problems require more than one evaluation for a complete diagnosis and treatment. We recommend that you schedule your follow up appointment as recommended to ensure complete treatment of you illness or injury. If you are unable to obtain follow up care and continue to have a problem, or if your condition worsens, we recommend that you return to the ED. 2. We are not able to safely determine your condition over the phone nor are we able to give sound medical advice over the phone. For these safety reasons, if you call for medical advice we will ask you to come to the ED for further evaluation. 3. If you have any questions regarding these discharge instructions please call the ED at [phone]. SAFETY INFORMATION: In the interest of safety, wellness, and injury prevention; we encourage you to wear your sealbelt, if you smoke; quite smoking, and we encourage family to use a protective helmet for bicycling and other sporting events that present an increased risk for head injury. IF YOUR SYMPTOMS WORSEN OR NEW SYMPTOMS DEVELOP, OR YOU HAVE CONCERNS ABOUT YOUR CONDITION; OR IF YOUR CONDITION WORSENS WHILE YOU ARE WAITING FOR YOUR FOLLOW UP APPOINTMENT; EITHER CONTACT YOUR PRIMARY CARE DOCTOR, THE PHYSICIAN WHOSE NAME AND NUMBER YOU WERE GIVEN, OR RETURN TO THE ED IMMEDIATELY. TOREY SANCHEZ APRN Jun 15, 2021 10:30
[2021-06-15] MEDS ORDERED: ONDANSETRON PF 4 MG/2 ML VIAL. IVP ONE (11:00)
[2021-06-15 11:16] LABS: BILIRUBIN,URINE NEGATIVE (NEG); CLARITY,URINE CLEAR; COLOR,URINE YELLOW; NITRITE,URINE NEGATIVE (NEG); PH,URINE 6.5 (<5.0-8.0); PROTEIN,URINE 100 mg/dL (NEG-TRACE); UROBILINOGEN,URINE 0.2 mg/dL (0.2 mg/dL)
[2021-06-15 11:17] LABS: BASO # 0.1 x10^3/uL (0.0-0.2); BASO % 1 % (0-3); EOS # 0.1 x10^3/uL (0.0-0.7); EOS % 1 % (0-3); HEMOGLOBIN 9.1 g/dL (12.0-15.5); LYMPH # 3.8 x10^3/uL (1.0-4.8); LYMPH % 35 % (24-48); MEAN CORPUSCULAR HEMOGLOBIN 20 pg (25-35); MEAN CORPUSCULAR HGB CONC 31 g/dL (31-37); MEAN CORPUSCULAR VOLUME 64 fL (79-100); MONO # 0.4 x10^3/uL (0.0-1.1); MONO % 4 % (0-9); NEUT # 6.4 x10^3/uL (1.8-7.7); NEUT % 59 % (31-73); PLATELET COUNT 331 x10^3/uL (140-400); RED BLOOD COUNT 4.52 x10^6/uL (3.50-5.40); WHITE BLOOD COUNT 10.8 x10^3/uL (4.0-11.0)
[2021-06-15 11:19] LABS: CALCIUM 8.1 mg/dL (8.5-10.1); CREATININE 0.7 mg/dL (0.6-1.0); GFR 118.9; POTASSIUM 3.3 mmol/L (3.5-5.1)
[2021-06-15 11:24] LABS: ALBUMIN 3.4 g/dL (3.4-5.0); ALBUMIN/GLOBULIN RATIO 0.8 (1.0-1.7); TOTAL BILIRUBIN 0.5 mg/dL (0.2-1.0); TOTAL PROTEIN 7.9 g/dL (6.4-8.2)
[2021-06-15 11:46] LABS: BACTERIA,URINE 0 /HPF (0-FEW); RBC,URINE 0 /HPF (0-2)
[2021-06-15] MEDS ORDERED: POTASSIUM CHLORIDE 20 MEQ TABLET.ER. PO ONE (12:00)
[2021-06-15 13:21] VITALS: BP 109/73
[2021-06-15 13:28] LABS: % BASOS 2 % (0-3); % EOS 1 % (0-5); % LYMPHS 17 % (24-48); % MONOS 4 % (0-10); % SEGS 76 % (35-66); NUCLEATED RBC 3; PLT ESTIMATE ADEQUATE (ADEQUATE)
[2021-06-15 13:31] LABS: ANISOCYTOSIS MOD; HYPOCHROMIA MOD; POIKILOCYTOSIS MOD
[2021-06-15 13:32] LABS: MICROCYTOSIS MOD; OVALOCYTES PRESENT; TARGET CELLS MOD
== END 2021-06-15 13:54 | disposition home or self-care (01) ==
LOC: ER 09:35
DX: D57.00 Hb-SS disease with crisis, unspecified (principal); Z90.49 Acquired absence of other specified parts of digestive tract; Z87.891 Personal history of nicotine dependence; Z88.5 Allergy status to narcotic agent
CPT/HCPCS: 36415; 80053; 81001; 81025; 85007; 85025; 85045; 96361; 96374; 96375; 96376; 99285; J1170; J1200; J2405; J7030

== ENCOUNTER 2021-08-12 11:37 | Emergency (ER) | payer MEDICARE, MEDICAID | END 2021-08-12 12:33 | disposition left against medical advice (07) | LOC: ER 11:37 | DX: M79.606 Pain in leg, unspecified (principal); Z53.21 Procedure and treatment not carried out due to patient leaving prior to being seen by health care provider ==

== ENCOUNTER 2021-08-15 15:59 | Emergency (ER) | payer MEDICARE, MEDICAID ==
[~2021-08-15] VITALS: Ht 162.6 cm; Wt 65.1 kg
[2021-08-15] MEDS ORDERED: IV NORMAL SALINE 1000ML BAG 1,000 ML IV ONE (17:00)
--- NOTE | 2021-08-15 17:00 | PHYS DOC ---
Past Medical History Past Medical History: Anxiety, Depression, Sickle Cell Disease, Other Additional Past Medical Histor: APHORESIS-REG BLOOD TRANSFUSIONS,PE,BLOOD/BONE INFECTION Past Surgical History: Cholecystectomy, Other Additional Past Surgical Histo: port in right AND LEFT Smoking Status: Never Smoker Alcohol Use: Occasionally Drug Use: None General Adult EDM: Chief Complaint: PAIN CONTROL HPI: HPI: Patient is a 31-year-old female that presents today with right leg pain related to her sickle cell disease. Patient states her pain started on Tuesday and Tuesday of this week, she states she had a blood exchange due to her sickle cell disease at the sickle cell clinic on she states they did give her pain medicine there while having her treatment, she states the pain has not resolved and that is why she presents to the emergency department. She states she took a Percocet 10 mg at 130 today and has not helped resolve her pain. Patient is seen at the [facility] sickle cell clinic. Review of Systems: Review of Systems: Constitutional: Denies fever or chills. [] Eyes: Denies change in visual acuity. [] HENT: Denies nasal congestion or sore throat. [] Respiratory: Denies cough or shortness of breath. [] Cardiovascular: Denies chest pain or edema. [] GI: Denies abdominal pain, nausea, vomiting, bloody stools or diarrhea. [] : Denies dysuria. [] Musculoskeletal: Right leg pain Integument: Denies rash. [] Neurologic: Denies headache, focal weakness or sensory changes. [] Endocrine: Denies polyuria or polydipsia. [] Lymphatic: Denies swollen glands. [] Psychiatric: Denies depression or anxiety. [] Heart Score: C/O Chest Pain: N/A Risk Factors: Risk Factors: DM, Current or recent (<one month) smoker, HTN, HLP, family history of CAD, obesity. Risk Scores: Score 0 - 3: 2.5% MACE over next 6 weeks - Discharge Home Score 4 - 6: 20.3% MACE over next 6 weeks - Admit for Clinical Observation Score 7 - 10: 72.7% MACE over next 6 weeks - Early Invasive Strategies Allergies: Allergies: Allergies Coded Allergies Type Severity Reaction Last Updated Verified morphine Allergy Intermediate ITCHING 01/12/19 Yes Physical Exam: PE: Constitutional: Well developed, well nourished, no acute distress, non-toxic appearance. [] HENT: Normocephalic, atraumatic, bilateral external ears normal, oropharynx moist, no oral exudates, nose normal. [] Eyes: PERRLA, EOMI, conjunctiva normal, no discharge. [] Neck: Normal range of motion, no tenderness, supple, no stridor. [] Cardiovascular:Heart rate regular rhythm, no murmur [] Lungs & Thorax: Bilateral breath sounds clear to auscultation [] Abdomen: Bowel sounds normal, soft, no tenderness, no masses, no pulsatile masses. [] Skin: Warm, dry, no erythema, no rash. [] Back: No tenderness, no CVA tenderness. [] Extremities: Patient has steady gait while walking, right leg warm to touch skin is dry due to the weather patient states she has not put enough lotion on there, dorsalis pedis and posterior tib pulses present 2+, neurovascular intact at the distal portion of the toes. Neurologic: Alert and oriented X 3, normal motor function, normal sensory function, no focal deficits noted. [] Psychologic: Affect normal, judgement normal, mood normal. [] Current Patient Data: Labs: Laboratory Tests Test 08/15/21 17:21 White Blood Count 17.4 x10^3/uL Red Blood Count 3.81 x10^6/uL Hemoglobin 10.1 g/dL Hematocrit 29.8 % Mean Corpuscular Volume 77 fL Mean Corpuscular Hemoglobin 26 pg Mean Corpuscular Hemoglobin Concent 34 g/dL Red Cell Distribution Width 24.4 % Platelet Count 374 x10^3/uL Neutrophils (%) (Auto) 70 % Lymphocytes (%) (Auto) 22 % Monocytes (%) (Auto) 5 % Eosinophils (%) (Auto) 2 % Basophils (%) (Auto) 1 % Neutrophils # (Auto) 12.2 x10^3/uL Lymphocytes # (Auto) 3.8 x10^3/uL Monocytes # (Auto) 0.9 x10^3/uL Eosinophils # (Auto) 0.4 x10^3/uL Basophils # (Auto) 0.1 x10^3/uL Platelet Estimate Adequate Polychromasia Mod Anisocytosis Mod Spherocytes Few Target Cells Mod Absolute Reticulocyte Count 0.161 x10^6/uL Percent Reticulocyte Count 4.2 % Immature Reticulocyte Fraction 0.55 Sodium Level 139 mmol/L Potassium Level 3.9 mmol/L Chloride Level 106 mmol/L Carbon Dioxide Level 23 mmol/L Anion Gap 10 Blood Urea Nitrogen 9 mg/dL Creatinine 0.6 mg/dL Estimated GFR (Cockcroft-Gault) 142.0 BUN/Creatinine Ratio 15 Glucose Level 88 mg/dL Calcium Level 7.7 mg/dL Total Bilirubin 0.6 mg/dL Aspartate Amino Transf (AST/SGOT) 13 U/L Alanine Aminotransferase (ALT/SGPT) 15 U/L Alkaline Phosphatase 73 U/L Total Protein 7.7 g/dL Albumin 3.4 g/dL Albumin/Globulin Ratio 0.8 Current Medications Medications (Trade) Dose Ordered Sig/Miguel Route PRN Reason Start Time Stop Time Status Last Admin Dose Admin Sodium Chloride 1,000 ml @ 999 mls/hr 1X ONCE IV 08/15/21 17:00 08/15/21 18:00 DC 08/15/21 17:31 Hydromorphone HCl (Dilaudid) 2 mg 1X ONCE IVP 08/15/21 17:15 08/15/21 17:16 DC 08/15/21 17:32 Diphenhydramine HCl (Benadryl) 25 mg 1X ONCE PO 08/15/21 17:15 08/15/21 17:16 DC 08/15/21 17:31 Hydromorphone HCl (Dilaudid) 2 mg 1X ONCE IVP 08/15/21 18:30 08/15/21 18:48 DC 08/15/21 19:10 Vital Signs: Vital Signs Date Time Temp Pulse Resp B/P (MAP) Pulse Ox O2 Delivery O2 Flow Rate FiO2 08/15/21 20:05 93 16 114/61 (78) 99 Room Air 08/15/21 19:15 82 21 116/77 (90) 96 Room Air 08/15/21 19:10 25 97 Room Air 08/15/21 18:28 80 15 121/72 (88) 97 Room Air 08/15/21 18:02 16 96 Room Air 08/15/21 17:58 80 12 129/79 (96) 96 Room Air 08/15/21 17:32 16 99 Room Air 08/15/21 17:28 122/77 (92) 98 Room Air 08/15/21 16:07 98.3 102 17 125/77 (93) 95 Room Air 98.3 Vital Signs Date Time Temp Pulse Resp B/P (MAP) Pulse Ox O2 Delivery O2 Flow Rate FiO2 08/15/21 16:07 98.3 102 17 125/77 (93) 95 Room Air 98.3 EKG: EKG: [] Radiology/Procedures: Radiology/Procedures: [] Course & Med Decision Making: Course & Med Decision Making Pertinent Labs and Imaging studies reviewed. (See chart for details) 1939 reassessment of patient patient states her pain is 3-4 out of 10 when asked if she feels comfortable going home or wishes to be admitted she is electing to go home and manage her sickle cell crisis at home with her oral pain medications. Patient states she only has about 4 Percocets left, will write for 10 more until she can follow-up in our clinic on Tuesday. Instructed her to follow-up Tuesday with her sickle cell clinic to let them know that she was still having pain. Increase her by mouth fluids stay in warm environment. Patient is encouraged to return to the emergency department for increased chest pain, shortness of breath, or development of a fever. Patient verbalized understanding of this and is agreeable to the plan of care. Jose Disclaimer: Jose Disclaimer: This electronic medical record was generated, in whole or in part, using a voice recognition dictation system. Departure Departure Impression: Primary Impression: Sickle cell pain crisis Disposition: HOME / SELF CARE / HOMELESS Condition: STABLE Referrals: NO PCP (PCP) Patient Instructions: Sickle Cell Pain Crisis Additional Instructions: Percocet take 1 to 2 tablets every 6 hours as needed for pain. Use with caution may cause drowsiness do not operate heavy machinery or make important decisions while taking this medication. Increase by mouth fluids stay well-hydrated. Return to the emergency department for increased chest pain, increased shortness of breath or development of shortness of breath, or development of fever. Follow-up with your clinic at the [facility] for further management of her sickle cell disease. Scripts Oxycodone/Apap 10-325 (PERCOCET 10-325 MG TABLET ) 1 Each Tablet 1 TAB PO PRN Q6HRS PRN for PAIN, #10 TAB 0 Refills Prov: EARLINE COVINGTON MED SPECIALIST 08/15/21 EARLINE COVINGTON APRN Aug 15, 2021 17:00
[2021-08-15] MEDS ORDERED: diphenhydrAMINE HCL 25 MG CAPSULE PO ONE (17:15)
[2021-08-15] MEDS ORDERED: HYDROmorphone 2 MG/ML INJ. IVP ONE ×2 (17:15→18:30)
[2021-08-15 17:39] LABS: BASO # 0.1 x10^3/uL (0.0-0.2); BASO % 1 % (0-3); EOS # 0.4 x10^3/uL (0.0-0.7); EOS % 2 % (0-3); HEMATOCRIT 29.8 % (36.0-47.0); HEMOGLOBIN 10.1 g/dL (12.0-15.5); LYMPH # 3.8 x10^3/uL (1.0-4.8); LYMPH % 22 % (24-48); MEAN CORPUSCULAR HEMOGLOBIN 26 pg (25-35); MEAN CORPUSCULAR HGB CONC 34 g/dL (31-37); MEAN CORPUSCULAR VOLUME 77 fL (79-100); MONO # 0.9 x10^3/uL (0.0-1.1); MONO % 5 % (0-9); NEUT # 12.2 x10^3/uL (1.8-7.7); NEUT % 70 % (31-73); PLATELET COUNT 374 x10^3/uL (140-400); RED BLOOD COUNT 3.86 x10^6/uL (3.50-5.40); RED CELL DISTRIBUTION WIDTH 24.4 % (11.5-14.5); WHITE BLOOD COUNT 17.4 x10^3/uL (4.0-11.0)
[2021-08-15 17:49] LABS: CALCIUM 7.7 mg/dL (8.5-10.1); CREATININE 0.6 mg/dL (0.6-1.0); POTASSIUM 3.9 mmol/L (3.5-5.1)
[2021-08-15 17:54] LABS: ALBUMIN 3.4 g/dL (3.4-5.0); ALBUMIN/GLOBULIN RATIO 0.8 (1.0-1.7); TOTAL BILIRUBIN 0.6 mg/dL (0.2-1.0); TOTAL PROTEIN 7.7 g/dL (6.4-8.2)
[2021-08-15 19:03] LABS: ANISOCYTOSIS MOD; PLT ESTIMATE ADEQUATE (ADEQUATE); TARGET CELLS MOD
[2021-08-15 19:05] LABS: POLYCHROMASIA MOD; SPHEROCYTES FEW
[2021-08-15] MEDS ORDERED: OXYC1TAB22 PO (19:45)
[2021-08-15] MEDS ORDERED: HEPARIN PF 500 UNIT/5 ML DISP.SYRIN. IVP ONE (20:00)
[2021-08-15 20:05] VITALS: BP 114/61
== END 2021-08-15 20:07 | disposition home or self-care (01) ==
LOC: ER 15:59
DX: D57.00 Hb-SS disease with crisis, unspecified (principal)
CPT/HCPCS: 36415; 80053; 85025; 85045; 96361; 96374; 96375; 96376; 99284; J1170; J1642; J7030; Q0163

== ENCOUNTER 2021-09-18 11:36 | Inpatient (IN) | payer MEDICARE, MEDICAID ==
[~2021-09-18] VITALS: Ht 162.6 cm; Wt 60.8 kg
[2021-09-18] MEDS ORDERED: ONDANSETRON PF 4 MG/2 ML VIAL. IVP ONE (12:00)
[2021-09-18] MEDS ORDERED: IV NORMAL SALINE 1000ML BAG 1,000 ML IV ONE ×2 (12:00→14:15)
[2021-09-18] MEDS ORDERED: diphenhydrAMINE 50 MG/ML VIAL IVP ONE ×2 (12:00→14:30)
[2021-09-18] MEDS ORDERED: HYDROmorphone 2 MG/ML INJ. IVP ONE ×3 (12:00→15:15)
--- NOTE | 2021-09-18 12:08 | ED.ADGEN ---
Past Medical History Past Medical History: Anxiety, Depression, Sickle Cell Disease, Other Additional Past Medical Histor: APHORESIS-REG BLOOD TRANSFUSIONS,PE,BLOOD/BONE INFECTION Past Surgical History: Cholecystectomy, Other Additional Past Surgical Histo: port in right AND LEFT Smoking Status: Never Smoker Alcohol Use: Occasionally Drug Use: None General Adult EDM: Chief Complaint: LOWER EXT PAIN HPI: HPI: Patient is a 31 year old female coming in for right leg pain that she attributes to her sickle cell. Patient states that with her sickle cell she typically has pain crisis in her upper and lower extremities. Patient has been taking her Percocet tens without relief. Patient states that she has had diarrhea recently and has not been drinking water because it makes her have to use the restroom. Denies any fevers, vomiting, chest pain or cough. No known sick contacts, no raw or undercooked foods, no recent travel. Patient sickle-cell is managed at by Dr. Ortiz Review of Systems: Review of Systems: All other systems within normal limits except for as noted in the HPI Current Medications: Current Medications Medications (Trade) Dose Ordered Sig/Miguel Start Time Stop Time Status Last Admin Dose Admin Diphenhydramine HCl (Benadryl) 25 mg 1X ONCE 09/18/21 14:30 09/18/21 14:31 DC 09/18/21 14:35 25 MG Hydromorphone HCl (Dilaudid) 2 mg 1X ONCE 09/18/21 14:00 09/18/21 14:01 DC 09/18/21 14:01 2 MG Ondansetron HCl (Zofran) 4 mg 1X ONCE 09/18/21 12:00 09/18/21 12:04 DC 09/18/21 12:30 4 MG Sodium Chloride 1,000 ml @ 1,000 mls/hr 1X ONCE 09/18/21 14:15 09/18/21 15:14 DC 09/18/21 14:38 1,000 MLS/HR Allergies: Allergies: Allergies Coded Allergies Type Severity Reaction Last Updated Verified morphine Allergy Intermediate ITCHING 01/12/19 Yes Physical Exam: PE: Constitutional: Well developed, well nourished, no acute distress, non-toxic appearance. [] HENT: Normocephalic, atraumatic, bilateral external ears normal, nose normal. [] Eyes: PERRLA, conjunctiva normal, no discharge. [] Neck: No rigidity, supple, no stridor. [] Cardiovascular: Regular rate and rhythm, brisk cap refill [] Lungs & Thorax: Non labored symmetric respirations, no tachypnea or respiratory distress [] Abdomen: Soft, nondistended. Skin: Warm, dry, no erythema, no rash. [] Back: Unremarkable Extremities: No deformities, range of motion grossly intact, no lower extremity edema. No calf tenderness. Pain not worse with palpation of right thigh and lower leg Neurologic: Alert and oriented X 3, no focal deficits noted. [] Psychologic: Affect normal, judgement normal, mood normal. [] Current Patient Data: Labs: Laboratory Tests Test 09/18/21 12:00 09/18/21 12:05 09/18/21 12:18 White Blood Count 11.5 x10^3/uL (4.0-11.0) H Red Blood Count 3.83 x10^6/uL (3.50-5.70) Hemoglobin 9.7 g/dL (12.0-15.5) L Hematocrit 29.9 % (36.0-47.0) L Mean Corpuscular Volume 79 fL (79-100) Mean Corpuscular Hemoglobin 26 pg (25-35) Mean Corpuscular Hemoglobin Concent 33 g/dL (31-37) Red Cell Distribution Width 24.2 % (11.5-14.5) H Platelet Count 497 x10^3/uL (140-400) H Neutrophils (%) (Auto) 58 % (31-73) Lymphocytes (%) (Auto) 34 % (24-48) Monocytes (%) (Auto) 3 % (0-9) Eosinophils (%) (Auto) 4 % (0-3) H Basophils (%) (Auto) 1 % (0-3) Neutrophils # (Auto) 6.7 x10^3/uL (1.8-7.7) Lymphocytes # (Auto) 3.9 x10^3/uL (1.0-4.8) Monocytes # (Auto) 0.3 x10^3/uL (0.0-1.1) Eosinophils # (Auto) 0.4 x10^3/uL (0.0-0.7) Basophils # (Auto) 0.1 x10^3/uL (0.0-0.2) Segmented Neutrophils % 63 % (35-66) Band Neutrophils % 5 % (0-9) Lymphocytes % 19 % (24-48) L Monocytes % 6 % (0-10) Eosinophils % 7 % (0-5) H Platelet Estimate Increased (ADEQUATE) Large Platelets Few Giant Platelets Occ Hypochromasia Mod Anisocytosis Mod Target Cells Many Ovalocytes Occ Absolute Reticulocyte Count 0.111 x10^6/uL (0.020-0.120) Percent Reticulocyte Count 2.9 % (0.5-2.3) H Immature Reticulocyte Fraction 0.36 (0.20-0.60) Sodium Level 140 mmol/L (136-145) Potassium Level 4.0 mmol/L (3.5-5.1) Chloride Level 108 mmol/L (98-107) H Carbon Dioxide Level 22 mmol/L (21-32) Anion Gap 10 (6-14) Blood Urea Nitrogen 4 mg/dL (7-20) L Creatinine 0.6 mg/dL (0.6-1.0) Estimated GFR (Cockcroft-Gault) 142.0 BUN/Creatinine Ratio 7 (6-20) Glucose Level 91 mg/dL (70-99) Calcium Level 7.8 mg/dL (8.5-10.1) L Total Bilirubin 0.2 mg/dL (0.2-1.0) Aspartate Amino Transferase (AST) 21 U/L (15-37) Alanine Aminotransferase (ALT) 25 U/L (14-59) Alkaline Phosphatase 70 U/L (46-116) Total Protein 7.9 g/dL (6.4-8.2) Albumin 3.2 g/dL (3.4-5.0) L Albumin/Globulin Ratio 0.7 (1.0-1.7) L Urine Collection Type Unknown Urine Color Yellow Urine Clarity Cloudy Urine pH 5.5 (<5.0-8.0) Urine Specific [place] 1.015 (1.000-1.030) Urine Protein Negative mg/dL (NEG-TRACE) Urine Glucose (UA) Negative mg/dL (NEG) Urine Ketones (Stick) Negative mg/dL (NEG) Urine Blood Large (NEG) Urine Nitrite Negative (NEG) Urine Bilirubin Negative (NEG) Urine Urobilinogen Dipstick 0.2 mg/dL (0.2 mg/dL) Urine Leukocyte Esterase Trace (NEG) Urine RBC 11-20 /HPF (0-2) Urine WBC 0 /HPF (0-4) Urine Squamous Epithelial Cells Few /LPF Urine Bacteria 0 /HPF (0-FEW) POC Urine HCG, Qualitative Hcg negative (Negative) Laboratory Tests 09/18/21 12:00 Laboratory Tests 09/18/21 12:00 Vital Signs: Vital Signs Date Time Temp Pulse Resp B/P (MAP) Pulse Ox O2 Delivery O2 Flow Rate FiO2 09/18/21 14:21 73 152/65 (94) 98 Room Air 09/18/21 11:45 98.3 18 98.3 EKG: EKG: [] Heart Score: C/O Chest Pain: No Risk Factors: Risk Factors: DM, Current or recent (<one month) smoker, HTN, HLP, family history of CAD, obesity. Risk Scores: Score 0 - 3: 2.5% MACE over next 6 weeks - Discharge Home Score 4 - 6: 20.3% MACE over next 6 weeks - Admit for Clinical Observation Score 7 - 10: 72.7% MACE over next 6 weeks - Early Invasive Strategies Radiology/Procedures: Radiology/Procedures: [] Course & Med Decision Making: Course & Med Decision Making Pertinent Labs and Imaging studies reviewed. (See chart for details) [] Jose Disclaimer: Jose Disclaimer: This electronic medical record was generated, in whole or in part, using a voice recognition dictation system. Departure Departure Impression: Primary Impression: Sickle cell pain crisis Disposition: ADMITTED INPATIENT Admitting Physician: HIMMeseret Condition: STABLE Referrals: NO PCP (PCP) SANFORD CAMARENA MD Sep 18, 2021 12:08
[2021-09-18 12:27] LABS: CALCIUM 7.8 mg/dL (8.5-10.1); CREATININE 0.6 mg/dL (0.6-1.0)
[2021-09-18 12:32] LABS: ALBUMIN 3.2 g/dL (3.4-5.0); ALBUMIN/GLOBULIN RATIO 0.7 (1.0-1.7); TOTAL BILIRUBIN 0.2 mg/dL (0.2-1.0); TOTAL PROTEIN 7.9 g/dL (6.4-8.2)
[2021-09-18 12:38] LABS: BILIRUBIN,URINE NEGATIVE (NEG); CLARITY,URINE CLOUDY; COLOR,URINE YELLOW; NITRITE,URINE NEGATIVE (NEG); PH,URINE 5.5 (<5.0-8.0); PROTEIN,URINE NEGATIVE (NEG-TRACE); UROBILINOGEN,URINE 0.2 mg/dL (0.2 mg/dL)
[2021-09-18 12:39] LABS: BASO # 0.1 x10^3/uL (0.0-0.2); BASO % 1 % (0-3); EOS # 0.4 x10^3/uL (0.0-0.7); EOS % 4 % (0-3); HEMATOCRIT 29.9 % (36.0-47.0); HEMOGLOBIN 9.7 g/dL (12.0-15.5); LYMPH # 3.9 x10^3/uL (1.0-4.8); LYMPH % 34 % (24-48); MEAN CORPUSCULAR HEMOGLOBIN 26 pg (25-35); MEAN CORPUSCULAR HGB CONC 33 g/dL (31-37); MEAN CORPUSCULAR VOLUME 79 fL (79-100); MONO # 0.3 x10^3/uL (0.0-1.1); MONO % 3 % (0-9); NEUT # 6.7 x10^3/uL (1.8-7.7); NEUT % 58 % (31-73); PLATELET COUNT 497 x10^3/uL (140-400); RED BLOOD COUNT 3.76 x10^6/uL (3.50-5.40); RED CELL DISTRIBUTION WIDTH 24.2 % (11.5-14.5); WHITE BLOOD COUNT 11.5 x10^3/uL (4.0-11.0)
[2021-09-18 12:53] LABS: BACTERIA,URINE 0 /HPF (0-FEW); WBC,URINE 0 /HPF (0-4)
[2021-09-18] MEDS: IV NORMAL SALINE 1000ML BAG 1,000 ML IV SCH ×2 (15:30→16:00)
[2021-09-18] MEDS ORDERED: diphenhydrAMINE 50 MG/ML VIAL IVP PRN (15:30)
[2021-09-18] MEDS ORDERED: ACETAMINOPHEN 325 MG TABLET. PO PRN ×2 (15:30→15:45)
[2021-09-18] MEDS ORDERED: ONDANSETRON PF 4 MG/2 ML VIAL. IVP PRN ×2 (15:30→15:45)
[2021-09-18] MEDS ORDERED: HYDROmorphone 2 MG/ML INJ. IVP PRN (15:30)
--- NOTE | 2021-09-18 15:42 | PDOC1 ---
History and Physical Date of Service: DOS: DATE: 09/18/21 TIME: 15:36 Chief Complaint: Chief Complain: Lower extremity pain History of Present Illness: HPI: 31-year-old female with past medical history of sickle cell disease who has bilateral Port-A-Cath and has followed with [facility] with Dr. Mark for a pheresis. She states that she left the window open last night and she developed right lower extremity pain due to cold air and she is not getting pain relief from her Percocets. She also states she has had diarrhea recently and she has not been drinking as much water because every time she drinks water she has to go to the bathroom. Denies any vomiting, fevers, chest pain, shortness of breath sick contacts or eating rare exotic foods or recent travel. Past Medical/Surgical History: PMH/PSH: Past Medical History: Anxiety, Depression, Sickle Cell Disease, APHORESIS-REG BLOOD TRANSFUSIONS,PE, history of MRSA bacteremia infection, bilateral pleural effusions Past Surgical History: Cholecystectomy, port in right AND LEFT, left wrist fracture at 9 years old, chest tubes placed bilaterally for pleural effusions Allergies: Allergies: Coded Allergies: morphine (Verified Allergy, Intermediate, ITCHING, 01/12/19) Family History: Family History: Reviewed with no relevant findings in the chart Social History: Social History: Smoking Status: Never Smoker Alcohol Use: Occasionally Drug Use: None Current Medications: Current Medications Current Medications Sodium Chloride 1,000 ml @ 1,000 mls/hr 1X ONCE IV Last administered on 09/18/21at 12:30; Start 09/18/21 at 12:00; Stop 09/18/21 at 12:59; Status DC Ondansetron HCl (Zofran) 4 mg 1X ONCE IVP Last administered on 09/18/21at 12:30; Start 09/18/21 at 12:00; Stop 09/18/21 at 12:04; Status DC Hydromorphone HCl (Dilaudid) 2 mg 1X ONCE IVP Last administered on 09/18/21at 12:33; Start 09/18/21 at 12:00; Stop 09/18/21 at 12:04; Status DC Diphenhydramine HCl (Benadryl) 25 mg 1X ONCE IVP Last administered on 09/18/21at 12:31; Start 09/18/21 at 12:00; Stop 09/18/21 at 12:04; Status DC Hydromorphone HCl (Dilaudid) 2 mg 1X ONCE IVP Last administered on 09/18/21at 14:01; Start 09/18/21 at 14:00; Stop 09/18/21 at 14:01; Status DC Sodium Chloride 1,000 ml @ 1,000 mls/hr 1X ONCE IV Last administered on 09/18/21at 14:38; Start 09/18/21 at 14:15; Stop 09/18/21 at 15:14; Status DC Diphenhydramine HCl (Benadryl) 25 mg 1X ONCE IVP Last administered on 09/18/21at 14:35; Start 09/18/21 at 14:30; Stop 09/18/21 at 14:31; Status DC Hydromorphone HCl (Dilaudid) 1 mg 1X ONCE IVP Last administered on 09/18/21at 15:33; Start 09/18/21 at 15:15; Stop 09/18/21 at 15:17; Status DC Ondansetron HCl (Zofran) 4 mg PRN Q8HRS PRN IVP NAUSEA/VOMITING; Start 09/18/21 at 15:30; Stop 09/19/21 at 15:29 Sodium Chloride 1,000 ml @ 100 mls/hr Q10H IV ; Start 09/18/21 at 15:30; Stop 09/19/21 at 15:29 Acetaminophen (Tylenol) 650 mg PRN Q4HRS PRN PO FEVER > 100.3'F; Start 09/18/21 at 15:30; Stop 09/19/21 at 15:29 Diphenhydramine HCl (Benadryl) 25 mg PRN Q6HRS PRN IVP ITCHING; Start 09/18/21 at 15:30 Hydromorphone HCl (Dilaudid) 2 mg PRN Q4HRS PRN IVP PAIN; Start 09/18/21 at 15:30 Hydromorphone HCl (Dilaudid) 2 mg QIDPRN PRN PO pain; Start 09/18/21 at 15:45; Status UNV Oxycodone/ Acetaminophen (Percocet 10/325) 1 tab Q6HRS PRN PO PAIN; Start 09/18/21 at 15:45; Status UNV Oxycodone/ Acetaminophen (Percocet 10/325) 1 tab PRN Q6HRS PRN PO PAIN; Start 09/18/21 at 15:45; Status UNV Non-Formulary Medication (Folic Acid ) 10 mg DAILY PO ; Start 09/19/21 at 09:00; Status UNV Non-Formulary Medication (Rivaroxaban (Xarelto)) 1 tab DAILY PO ; Start 09/19/21 at 09:00; Status UNV Active Scripts Active Percocet 10-325 Mg Tablet (Oxycodone/Acetaminophen) 1 Each Tablet 1 Tab PO PRN Q6HRS PRN Dilaudid (Hydromorphone Hcl) 2 Mg Tablet 1 Tab PO QIDPRN PRN MDD 4 Tablet(s) 5 Days Reported Folic Acid 0.8 Mg Capsule 10 Mg PO DAILY Xarelto (Rivaroxaban) 20 Mg Tablet 1 Tab PO DAILY 30 Days with food Percocet 10-325 Mg Tablet (Oxycodone/Acetaminophen) 1 Each Tablet 1 Tab PO PRN Q4-6HRS PRN MDD 6 Tablet(s) 5 Days ROS: Review of Systems Review of System REVIEW OF SYSTEMS: GENERAL: Denies weakness SKIN: No bruising, hair changes or rashes. EYES: No blurred, double or loss of vision. NOSE AND THROAT: No history of nosebleeds, hoarseness or sore throat. HEART: No history of palpitations, chest pain or shortness of breath on exertion. LUNGS: Denies cough, hemoptysis, wheezing or shortness of breath. GASTROINTESTINAL: Denies changes in appetite, nausea, vomiting, diarrhea or constipation. GENITOURINARY: No history of frequency, urgency, hesitancy or nocturia. NEUROLOGIC: Denies history of numbness, tingling, or tremor. PSYCHIATRIC: No history of panic, anxiety or depression. ENDOCRINE: No history of heat or cold intolerance, polyuria or polydipsia. EXTREMITIES: Right lower extremity pain Physical Exam: Vital Signs: Vital Signs Date Time Temp Pulse Resp B/P (MAP) Pulse Ox O2 Delivery O2 Flow Rate FiO2 09/18/21 15:33 18 100 Room Air 09/18/21 11:45 98.3 95 119/77 (91) 98.3 Physcial Exam: General: Well developed, well nourished, no acute distress, well appearing HEENT: Pupils equally round and reactive to light, EOMI, no discharge, normal conjunctiva Neck: Supple, no nuchal rigidity, no JVD, trachea midline, no tenderness Cardiac: RRR, no murmurs, no gallops, no rubs Chest/Lungs: CTAB, no wheeze, no rhonchi, no crackles Abdomen: soft, non-distended, no guarding, no peritoneal signs, non-tender Back: No tenderness Extremities: no edema, pulses intact, non-tender,capillary refill <3 sec bilateral upper and lower extremities. Tender to palpation in the calf region. No tenderness and on palpation to joints. No signs of erythema or exquisite tenderness. Warm to touch Neuro: Alert and oriented x 4, no focal deficits, normal speech Labs: Labs: Laboratory Tests Test 09/18/21 12:00 09/18/21 12:05 09/18/21 12:18 White Blood Count 11.5 x10^3/uL (4.0-11.0) Red Blood Count 3.83 x10^6/uL (3.50-5.70) Hemoglobin 9.7 g/dL (12.0-15.5) Hematocrit 29.9 % (36.0-47.0) Mean Corpuscular Volume 79 fL (79-100) Mean Corpuscular Hemoglobin 26 pg (25-35) Mean Corpuscular Hemoglobin Concent 33 g/dL (31-37) Red Cell Distribution Width 24.2 % (11.5-14.5) Platelet Count 497 x10^3/uL (140-400) Neutrophils (%) (Auto) 58 % (31-73) Lymphocytes (%) (Auto) 34 % (24-48) Monocytes (%) (Auto) 3 % (0-9) Eosinophils (%) (Auto) 4 % (0-3) Basophils (%) (Auto) 1 % (0-3) Neutrophils # (Auto) 6.7 x10^3/uL (1.8-7.7) Lymphocytes # (Auto) 3.9 x10^3/uL (1.0-4.8) Monocytes # (Auto) 0.3 x10^3/uL (0.0-1.1) Eosinophils # (Auto) 0.4 x10^3/uL (0.0-0.7) Basophils # (Auto) 0.1 x10^3/uL (0.0-0.2) Absolute Reticulocyte Count 0.111 x10^6/uL (0.020-0.120) Percent Reticulocyte Count 2.9 % (0.5-2.3) Immature Reticulocyte Fraction 0.36 (0.20-0.60) Sodium Level 140 mmol/L (136-145) Potassium Level 4.0 mmol/L (3.5-5.1) Chloride Level 108 mmol/L (98-107) Carbon Dioxide Level 22 mmol/L (21-32) Anion Gap 10 (6-14) Blood Urea Nitrogen 4 mg/dL (7-20) Creatinine 0.6 mg/dL (0.6-1.0) Estimated GFR (Cockcroft-Gault) 142.0 BUN/Creatinine Ratio 7 (6-20) Glucose Level 91 mg/dL (70-99) Calcium Level 7.8 mg/dL (8.5-10.1) Total Bilirubin 0.2 mg/dL (0.2-1.0) Aspartate Amino Transf (AST/SGOT) 21 U/L (15-37) Alanine Aminotransferase (ALT/SGPT) 25 U/L (14-59) Alkaline Phosphatase 70 U/L (46-116) Total Protein 7.9 g/dL (6.4-8.2) Albumin 3.2 g/dL (3.4-5.0) Albumin/Globulin Ratio 0.7 (1.0-1.7) Urine Collection Type Unknown Urine Color Yellow Urine Clarity Cloudy Urine pH 5.5 (<5.0-8.0) Urine Specific [place] 1.015 (1.000-1.030) Urine Protein Negative mg/dL (NEG-TRACE) Urine Glucose (UA) Negative mg/dL (NEG) Urine Ketones (Stick) Negative mg/dL (NEG) Urine Blood Large (NEG) Urine Nitrite Negative (NEG) Urine Bilirubin Negative (NEG) Urine Urobilinogen Dipstick 0.2 mg/dL (0.2 mg/dL) Urine Leukocyte Esterase Trace (NEG) Urine RBC 11-20 /HPF (0-2) Urine WBC 0 /HPF (0-4) Urine Squamous Epithelial Cells Few /LPF Urine Bacteria 0 /HPF (0-FEW) Bedside Urine HCG, Qualitative Hcg negative (Negative) Laboratory Tests Test 09/18/21 12:00 09/18/21 12:05 09/18/21 12:18 White Blood Count 11.5 x10^3/uL (4.0-11.0) Red Blood Count 3.83 x10^6/uL (3.50-5.70) Hemoglobin 9.7 g/dL (12.0-15.5) Hematocrit 29.9 % (36.0-47.0) Mean Corpuscular Volume 79 fL (79-100) Mean Corpuscular Hemoglobin 26 pg (25-35) Mean Corpuscular Hemoglobin Concent 33 g/dL (31-37) Red Cell Distribution Width 24.2 % (11.5-14.5) Platelet Count 497 x10^3/uL (140-400) Neutrophils (%) (Auto) 58 % (31-73) Lymphocytes (%) (Auto) 34 % (24-48) Monocytes (%) (Auto) 3 % (0-9) Eosinophils (%) (Auto) 4 % (0-3) Basophils (%) (Auto) 1 % (0-3) Neutrophils # (Auto) 6.7 x10^3/uL (1.8-7.7) Lymphocytes # (Auto) 3.9 x10^3/uL (1.0-4.8) Monocytes # (Auto) 0.3 x10^3/uL (0.0-1.1) Eosinophils # (Auto) 0.4 x10^3/uL (0.0-0.7) Basophils # (Auto) 0.1 x10^3/uL (0.0-0.2) Absolute Reticulocyte Count 0.111 x10^6/uL (0.020-0.120) Percent Reticulocyte Count 2.9 % (0.5-2.3) Immature Reticulocyte Fraction 0.36 (0.20-0.60) Sodium Level 140 mmol/L (136-145) Potassium Level 4.0 mmol/L (3.5-5.1) Chloride Level 108 mmol/L (98-107) Carbon Dioxide Level 22 mmol/L (21-32) Anion Gap 10 (6-14) Blood Urea Nitrogen 4 mg/dL (7-20) Creatinine 0.6 mg/dL (0.6-1.0) Estimated GFR (Cockcroft-Gault) 142.0 BUN/Creatinine Ratio 7 (6-20) Glucose Level 91 mg/dL (70-99) Calcium Level 7.8 mg/dL (8.5-10.1) Total Bilirubin 0.2 mg/dL (0.2-1.0) Aspartate Amino Transf (AST/SGOT) 21 U/L (15-37) Alanine Aminotransferase (ALT/SGPT) 25 U/L (14-59) Alkaline Phosphatase 70 U/L (46-116) Total Protein 7.9 g/dL (6.4-8.2) Albumin 3.2 g/dL (3.4-5.0) Albumin/Globulin Ratio 0.7 (1.0-1.7) Urine Collection Type Unknown Urine Color Yellow Urine Clarity Cloudy Urine pH 5.5 (<5.0-8.0) Urine Specific [place] 1.015 (1.000-1.030) Urine Protein Negative mg/dL (NEG-TRACE) Urine Glucose (UA) Negative mg/dL (NEG) Urine Ketones (Stick) Negative mg/dL (NEG) Urine Blood Large (NEG) Urine Nitrite Negative (NEG) Urine Bilirubin Negative (NEG) Urine Urobilinogen Dipstick 0.2 mg/dL (0.2 mg/dL) Urine Leukocyte Esterase Trace (NEG) Urine RBC 11-20 /HPF (0-2) Urine WBC 0 /HPF (0-4) Urine Squamous Epithelial Cells Few /LPF Urine Bacteria 0 /HPF (0-FEW) Bedside Urine HCG, Qualitative Hcg negative (Negative) Images: Images No recent images to review Assessment/Plan Assessment/Plan Acute sickle cell crisis 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 pain control Continue IV fluids Pending UDS Pending ultrasound of the lower extremity to rule out DVT Xarelto for DVT prophylaxis Protonix GI prophylaxis Regular diet CODE STATUS full Discussed with RN and SW Disposition inpatient management as above DPOA: Mother Justifications for Admission Other Justification Sickle cell crisis POLY BRADSHAW MD Sep 18, 2021 15:42
[2021-09-18 15:45] VITALS: BP 126/83
[2021-09-18] MEDS ORDERED: LORazepam 0.5 MG TABLET PO PRN (15:45)
[2021-09-18] MEDS ORDERED: HYDROmorphone 2 MG TABLET PO PRN (15:45)
[2021-09-18] MEDS ORDERED: DEXTROSE 50% 25 GM / 50ML DISP.SYRIN. IV PRN (15:45)
[2021-09-18] MEDS ORDERED: SENNOSIDES 8.6 MG TABLET PO PRN (15:45)
[2021-09-18] MEDS ORDERED: DOCUSATE SODIUM 100 MG CAPSULE. PO PRN (15:45)
[2021-09-18] MEDS ORDERED: oxyCODONE/APAP 10/325 1 TAB TABLET PO PRN (15:45)
[2021-09-18] MEDS ORDERED: PROCHLORPERAZINE 10 MG/2 ML VIAL. IV PRN (15:45)
[2021-09-18] MEDS ORDERED: ZOLPIDEM 5 MG TABLET. PO PRN (15:45)
[2021-09-18] MEDS: RIVAROXABAN 10 MG TABLET. PO SCH (16:43)
[2021-09-18] MEDS: oxyCODONE/APAP 10/325 1 TAB TABLET PO PRN (16:44)
[2021-09-18 17:48] LABS: % BANDS 5 % (0-9); % EOS 7 % (0-5); % LYMPHS 19 % (24-48); % MONOS 6 % (0-10); % SEGS 63 % (35-66)
[2021-09-18 17:49] LABS: HYPOCHROMIA MOD; PLT ESTIMATE INCREASED (ADEQUATE); TARGET CELLS MANY
[2021-09-18 17:50] LABS: ANISOCYTOSIS MOD; OVALOCYTES OCC
[2021-09-18] MEDS: HYDROmorphone 2 MG/ML INJ. IVP PRN ×2 (18:17→21:26)
[2021-09-18 19:40] VITALS: BP 134/80
[2021-09-18] MEDS: diphenhydrAMINE HCL 25 MG CAPSULE PO PRN (21:30)
[2021-09-18 23:10] VITALS: BP 121/78
[2021-09-19] MEDS: HYDROmorphone 2 MG/ML INJ. IVP PRN ×8 (00:25→23:32)
[2021-09-19] MEDS: IV NORMAL SALINE 1000ML BAG 1,000 ML IV SCH ×4 (01:30→11:45)
--- NOTE | 2021-09-19 03:58 | EKG ---
[facility] [address] [place] [address] Test Date: 2021-09-18 Test Time: 12:37:14 Pat Name: KETURAH ROQUE Department: Room: 426 Gender: F Front Desk Clerk: : 1990 Requested By: SANFORD CAMARENA Order Number: [id number] Reading MD: Patrice Garza Measurements Intervals [place] Rate: 82 P: 34 ID: [id number] QRS: 51 QRSD: 82 T: 26 QT: 386 QTc: 454 Interpretive Statements SINUS RHYTHM NORMAL ECG RI6.02 No previous ECG available for comparison Electronically Signed On 09-20-2021 14:00:19 VACCINE SPECIALIST by Patrice Garza
[2021-09-19] MEDS: oxyCODONE/APAP 10/325 1 TAB TABLET PO PRN ×3 (05:41→20:40)
[2021-09-19 07:00] VITALS: BP 123/73
[2021-09-19 07:31] LABS: ALBUMIN/GLOBULIN RATIO 0.8 (1.0-1.7); CALCIUM 7.6 mg/dL (8.5-10.1); CREATININE 0.6 mg/dL (0.6-1.0); POTASSIUM 4.4 mmol/L (3.5-5.1); TOTAL BILIRUBIN 0.2 mg/dL (0.2-1.0); TOTAL PROTEIN 6.9 g/dL (6.4-8.2)
[2021-09-19 07:32] LABS: BASO # 0.1 x10^3/uL (0.0-0.2); BASO % 1 % (0-3); EOS # 0.6 x10^3/uL (0.0-0.7); EOS % 6 % (0-3); HEMATOCRIT 26.6 % (36.0-47.0); HEMOGLOBIN 8.7 g/dL (12.0-15.5); LYMPH # 2.7 x10^3/uL (1.0-4.8); LYMPH % 28 % (24-48); MEAN CORPUSCULAR HEMOGLOBIN 26 pg (25-35); MEAN CORPUSCULAR HGB CONC 33 g/dL (31-37); MEAN CORPUSCULAR VOLUME 79 fL (79-100); MONO # 0.5 x10^3/uL (0.0-1.1); MONO % 5 % (0-9); NEUT % 61 % (31-73); PLATELET COUNT 531 x10^3/uL (140-400); RED BLOOD COUNT 3.36 x10^6/uL (3.50-5.40); RED CELL DISTRIBUTION WIDTH 25.2 % (11.5-14.5); WHITE BLOOD COUNT 9.8 x10^3/uL (4.0-11.0)
--- NOTE | 2021-09-19 09:03 | RAD ---
EXAM: Left lower extremity venous Doppler. HISTORY: Left lower extremity pain/swelling. COMPARISON: None. FINDINGS: Grayscale and Doppler analysis of the left lower extremity deep venous system was performed with graded compression and augmentation. The common femoral, greater saphenous, superficial femoral , popliteal and calf veins were assessed. There is no evidence of deep venous thrombosis. IMPRESSION: 1. No evidence of deep venous thrombosis. Electronically signed by: Charla Rosales MD (09/19/2021 9:01 AM) [facility]
[2021-09-19] MEDS: PANTOPRAZOLE 40 MG TABLET.DR. PO SCH (09:12)
[2021-09-19] MEDS: FOLIC ACID 1 MG TABLET. PO SCH (09:12)
[2021-09-19 09:45] LABS: AMPHETAMINE/METHAMPHETAMINE NEG (NEG); BARBITURATES NEG (NEG); BENZODIAZEPINES NEG (NEG); CANNABINOIDS NEG (NEG); COCAINE NEG (NEG); METHADONE NEG (NEG); OPIATES NEG (NEG); PHENCYCLIDINE NEG (NEG)
[2021-09-19 11:00] VITALS: BP 110/77
--- NOTE | 2021-09-19 11:28 | PDOC ---
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 History of PE History of depression History of MRSA infection History of Present Illness History of Present Illness 09/19/2021 Patient seen and examined Discussed with RN Patient doing a little better Chart reviewed Vitals/I&O Vitals/I&O: Vital Signs Date Time Temp Pulse Resp B/P (MAP) Pulse Ox O2 Delivery O2 Flow Rate FiO2 09/19/21 11:00 98.2 87 18 110/77 (88) 94 Room Air 98.2 I & O 09/18/21 09/18/21 09/19/21 15:00 23:00 07:00 Intake Total 2000 ml 300 ml Output Total 200 ml 900 ml Balance 1800 ml -600 ml Physical Exam General: Alert Heart: Regular rate Lungs: Clear Abdomen: Normal bowel sounds Extremities: No clubbing Skin: No rashes Labs Labs: Laboratory Tests Test 09/18/21 12:00 09/18/21 12:05 09/18/21 12:18 09/19/21 06:30 White Blood Count 11.5 x10^3/uL (4.0-11.0) 9.8 x10^3/uL (4.0-11.0) Red Blood Count 3.83 x10^6/uL (3.50-5.70) 3.36 x10^6/uL (3.50-5.40) Hemoglobin 9.7 g/dL (12.0-15.5) 8.7 g/dL (12.0-15.5) Hematocrit 29.9 % (36.0-47.0) 26.6 % (36.0-47.0) Mean Corpuscular Volume 79 fL (79-100) 79 fL (79-100) Mean Corpuscular Hemoglobin 26 pg (25-35) 26 pg (25-35) Mean Corpuscular Hemoglobin Concent 33 g/dL (31-37) 33 g/dL (31-37) Red Cell Distribution Width 24.2 % (11.5-14.5) 25.2 % (11.5-14.5) Platelet Count 497 x10^3/uL (140-400) 531 x10^3/uL (140-400) Neutrophils (%) (Auto) 58 % (31-73) 61 % (31-73) Lymphocytes (%) (Auto) 34 % (24-48) 28 % (24-48) Monocytes (%) (Auto) 3 % (0-9) 5 % (0-9) Eosinophils (%) (Auto) 4 % (0-3) 6 % (0-3) Basophils (%) (Auto) 1 % (0-3) 1 % (0-3) Neutrophils # (Auto) 6.7 x10^3/uL (1.8-7.7) 6.0 x10^3/uL (1.8-7.7) Lymphocytes # (Auto) 3.9 x10^3/uL (1.0-4.8) 2.7 x10^3/uL (1.0-4.8) Monocytes # (Auto) 0.3 x10^3/uL (0.0-1.1) 0.5 x10^3/uL (0.0-1.1) Eosinophils # (Auto) 0.4 x10^3/uL (0.0-0.7) 0.6 x10^3/uL (0.0-0.7) Basophils # (Auto) 0.1 x10^3/uL (0.0-0.2) 0.1 x10^3/uL (0.0-0.2) Segmented Neutrophils % 63 % (35-66) Band Neutrophils % 5 % (0-9) Lymphocytes % 19 % (24-48) Monocytes % 6 % (0-10) Eosinophils % 7 % (0-5) Platelet Estimate Increased (ADEQUATE) Large Platelets Few Giant Platelets Occ Hypochromasia Mod Anisocytosis Mod Target Cells Many Ovalocytes Occ Absolute Reticulocyte Count 0.111 x10^6/uL (0.020-0.120) Percent Reticulocyte Count 2.9 % (0.5-2.3) Immature Reticulocyte Fraction 0.36 (0.20-0.60) Sodium Level 140 mmol/L (136-145) 143 mmol/L (136-145) Potassium Level 4.0 mmol/L (3.5-5.1) 4.4 mmol/L (3.5-5.1) Chloride Level 108 mmol/L (98-107) 109 mmol/L (98-107) Carbon Dioxide Level 22 mmol/L (21-32) 23 mmol/L (21-32) Anion Gap 10 (6-14) 11 (6-14) Blood Urea Nitrogen 4 mg/dL (7-20) 6 mg/dL (7-20) Creatinine 0.6 mg/dL (0.6-1.0) 0.6 mg/dL (0.6-1.0) Estimated GFR (Cockcroft-Gault) 142.0 142.0 BUN/Creatinine Ratio 7 (6-20) 10 (6-20) Glucose Level 91 mg/dL (70-99) 88 mg/dL (70-99) Calcium Level 7.8 mg/dL (8.5-10.1) 7.6 mg/dL (8.5-10.1) Total Bilirubin 0.2 mg/dL (0.2-1.0) 0.2 mg/dL (0.2-1.0) Aspartate Amino Transf (AST/SGOT) 21 U/L (15-37) 16 U/L (15-37) Alanine Aminotransferase (ALT/SGPT) 25 U/L (14-59) 22 U/L (14-59) Alkaline Phosphatase 70 U/L (46-116) 81 U/L (46-116) Total Protein 7.9 g/dL (6.4-8.2) 6.9 g/dL (6.4-8.2) Albumin 3.2 g/dL (3.4-5.0) 3.0 g/dL (3.4-5.0) Albumin/Globulin Ratio 0.7 (1.0-1.7) 0.8 (1.0-1.7) Urine Collection Type Unknown Urine Color Yellow Urine Clarity Cloudy Urine pH 5.5 (<5.0-8.0) Urine Specific [place] 1.015 (1.000-1.030) Urine Protein Negative mg/dL (NEG-TRACE) Urine Glucose (UA) Negative mg/dL (NEG) Urine Ketones (Stick) Negative mg/dL (NEG) Urine Blood Large (NEG) Urine Nitrite Negative (NEG) Urine Bilirubin Negative (NEG) Urine Urobilinogen Dipstick 0.2 mg/dL (0.2 mg/dL) Urine Leukocyte Esterase Trace (NEG) Urine RBC 11-20 /HPF (0-2) Urine WBC 0 /HPF (0-4) Urine Squamous Epithelial Cells Few /LPF Urine Bacteria 0 /HPF (0-FEW) Bedside Urine HCG, Qualitative Hcg negative (Negative) Test 09/19/21 09:00 Urine Opiates Screen Neg (NEG) Urine Methadone Screen Neg (NEG) Urine Barbiturates Neg (NEG) Urine Phencyclidine Screen Neg (NEG) Urine Amphetamine/Methamphetamine Neg (NEG) Urine Benzodiazepines Screen Neg (NEG) Urine Cocaine Screen Neg (NEG) Urine Cannabinoids Screen Neg (NEG) Urine Ethyl Alcohol Neg (NEG) Assessment and Plan Assessmemt and Plan Problems Medical Problems: (1) Sickle cell pain crisis Status: Acute Acute sickle cell crisis 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 Medications: Current Medications Medications (Trade) Dose Ordered Sig/Miguel Route PRN Reason Start Time Stop Time Status Last Admin Dose Admin Sodium Chloride 1,000 ml @ 1,000 mls/hr 1X ONCE IV 09/18/21 12:00 09/18/21 12:59 DC 09/18/21 12:30 Ondansetron HCl (Zofran) 4 mg 1X ONCE IVP 09/18/21 12:00 09/18/21 12:04 DC 09/18/21 12:30 Hydromorphone HCl (Dilaudid) 2 mg 1X ONCE IVP 09/18/21 12:00 09/18/21 12:04 DC 09/18/21 12:33 Diphenhydramine HCl (Benadryl) 25 mg 1X ONCE IVP 09/18/21 12:00 09/18/21 12:04 DC 09/18/21 12:31 Hydromorphone HCl (Dilaudid) 2 mg 1X ONCE IVP 09/18/21 14:00 09/18/21 14:01 DC 09/18/21 14:01 Sodium Chloride 1,000 ml @ 1,000 mls/hr 1X ONCE IV 09/18/21 14:15 09/18/21 15:14 DC 09/18/21 14:38 Diphenhydramine HCl (Benadryl) 25 mg 1X ONCE IVP 09/18/21 14:30 09/18/21 14:31 DC 09/18/21 14:35 Hydromorphone HCl (Dilaudid) 1 mg 1X ONCE IVP 09/18/21 15:15 09/18/21 15:17 DC 09/18/21 15:33 Diphenhydramine HCl (Benadryl) 25 mg PRN Q6HRS PRN IVP ITCHING 09/18/21 15:30 09/19/21 09:21 Oxycodone/ Acetaminophen (Percocet 10/325) 1 tab PRN Q6HRS PRN PO MODERATE PAIN 09/18/21 15:45 09/19/21 05:41 Folic Acid (Folic Acid) 1 mg DAILY PO 09/19/21 09:00 09/19/21 09:12 Rivaroxaban (Xarelto) 20 mg DAILYWSUP PO 09/18/21 17:00 09/18/21 16:43 Sodium Chloride 1,000 ml @ 100 mls/hr Q10H IV 09/18/21 15:45 09/19/21 01:45 Lorazepam (Ativan) 0.5 mg PRN Q6HRS PRN PO ANXIETY / AGITATION 09/18/21 15:45 09/19/21 00:26 Diphenhydramine HCl (Benadryl) 25 mg PRN QHS PRN PO INSOMNIA, 1st CHOICE 09/18/21 15:45 09/18/21 21:30 Pantoprazole Sodium (Protonix) 40 mg DAILYAC PO 09/19/21 07:30 09/19/21 09:12 Hydromorphone HCl (Dilaudid) 2 mg PRN Q2HR PRN IVP PAIN 09/18/21 18:00 09/19/21 09:18 Justifications for Admission Other Justification Sickle cell crisis KRISHNA DENNY III DO Sep 19, 2021 11:28
[2021-09-19] MEDS: diphenhydrAMINE HCL 25 MG CAPSULE PO PRN ×2 (13:07→20:39)
[2021-09-19 15:00] VITALS: BP 121/64
[2021-09-19] MEDS: RIVAROXABAN 10 MG TABLET. PO SCH (17:30)
[2021-09-19] MEDS: diphenhydrAMINE 50 MG/ML VIAL IVP PRN ×2 (17:31→23:31)
[2021-09-19 19:00] VITALS: BP 115/70
[2021-09-19 23:00] VITALS: BP 109/78
[2021-09-20] MEDS: IV NORMAL SALINE 1000ML BAG 1,000 ML IV SCH ×3 (00:30→18:38)
[2021-09-20] MEDS: HYDROmorphone 2 MG/ML INJ. IVP PRN ×6 (02:32→20:53)
[2021-09-20 03:00] VITALS: BP 122/77
[2021-09-20] MEDS: diphenhydrAMINE 50 MG/ML VIAL IVP PRN ×3 (05:16→20:52)
[2021-09-20 05:45] LABS: CALCIUM 7.6 mg/dL (8.5-10.1); CREATININE 0.7 mg/dL (0.6-1.0); GFR 118.9; MAGNESIUM 1.8 mg/dL (1.8-2.4); POTASSIUM 4.1 mmol/L (3.5-5.1)
[2021-09-20 05:54] LABS: BASO # 0.1 x10^3/uL (0.0-0.2); BASO % 1 % (0-3); EOS # 0.5 x10^3/uL (0.0-0.7); EOS % 5 % (0-3); HEMATOCRIT 25.6 % (36.0-47.0); HEMOGLOBIN 8.5 g/dL (12.0-15.5); LYMPH # 4.6 x10^3/uL (1.0-4.8); LYMPH % 45 % (24-48); MEAN CORPUSCULAR HEMOGLOBIN 26 pg (25-35); MEAN CORPUSCULAR HGB CONC 33 g/dL (31-37); MEAN CORPUSCULAR VOLUME 79 fL (79-100); MONO # 0.4 x10^3/uL (0.0-1.1); MONO % 4 % (0-9); NEUT # 4.5 x10^3/uL (1.8-7.7); NEUT % 44 % (31-73); PLATELET COUNT 552 x10^3/uL (140-400); RED BLOOD COUNT 3.25 x10^6/uL (3.50-5.40); RED CELL DISTRIBUTION WIDTH 25.3 % (11.5-14.5); WHITE BLOOD COUNT 10.2 x10^3/uL (4.0-11.0)
[2021-09-20 06:58] LABS: % BANDS 2 % (0-9); % EOS 6 % (0-5); % LYMPHS 15 % (24-48); % MONOS 8 % (0-10); % SEGS 69 % (35-66); PLT ESTIMATE INCREASED (ADEQUATE)
[2021-09-20 06:59] LABS: ANISOCYTOSIS MOD; POIKILOCYTOSIS PRESENT; TARGET CELLS MOD
[2021-09-20 07:00] VITALS: BP 127/87
[2021-09-20] MEDS: PANTOPRAZOLE 40 MG TABLET.DR. PO SCH (08:29)
[2021-09-20] MEDS: diphenhydrAMINE HCL 25 MG CAPSULE PO PRN ×2 (08:29→17:03)
[2021-09-20] MEDS: FOLIC ACID 1 MG TABLET. PO SCH (08:29)
[2021-09-20] MEDS: oxyCODONE/APAP 10/325 1 TAB TABLET PO PRN ×2 (08:36→17:06)
[2021-09-20 10:57] VITALS: BP 133/80
--- NOTE | 2021-09-20 11:24 | PDOC ---
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 History of PE History of depression History of MRSA infection History of Present Illness History of Present Illness 09/20/2021 Patient seen and examined Discussed with RN Patient continues to improve Patient requests to not receive Benadryl as she does not like side effects Chart reviewed Discussed with patient we are waiting on hematology consult before probable discharge tomorrow 09/19/2021 Patient seen and examined Discussed with RN Patient doing a little better Chart reviewed Vitals/I&O Vitals/I&O: Vital Signs Date Time Temp Pulse Resp B/P (MAP) Pulse Ox O2 Delivery O2 Flow Rate FiO2 09/20/21 10:57 98.0 92 18 133/80 (97) 98 Room Air 98.0 I & O 09/19/21 09/19/21 09/20/21 15:00 23:00 07:00 Intake Total 600 ml Balance 600 ml Physical Exam General: Alert Heart: Regular rate Lungs: Clear Abdomen: Normal bowel sounds Extremities: No clubbing Skin: No rashes Labs Labs: Laboratory Tests Test 09/20/21 05:00 White Blood Count 10.2 x10^3/uL (4.0-11.0) Red Blood Count 3.25 x10^6/uL (3.50-5.40) Hemoglobin 8.5 g/dL (12.0-15.5) Hematocrit 25.6 % (36.0-47.0) Mean Corpuscular Volume 79 fL (79-100) Mean Corpuscular Hemoglobin 26 pg (25-35) Mean Corpuscular Hemoglobin Concent 33 g/dL (31-37) Red Cell Distribution Width 25.3 % (11.5-14.5) Platelet Count 552 x10^3/uL (140-400) Neutrophils (%) (Auto) 44 % (31-73) Lymphocytes (%) (Auto) 45 % (24-48) Monocytes (%) (Auto) 4 % (0-9) Eosinophils (%) (Auto) 5 % (0-3) Basophils (%) (Auto) 1 % (0-3) Neutrophils # (Auto) 4.5 x10^3/uL (1.8-7.7) Lymphocytes # (Auto) 4.6 x10^3/uL (1.0-4.8) Monocytes # (Auto) 0.4 x10^3/uL (0.0-1.1) Eosinophils # (Auto) 0.5 x10^3/uL (0.0-0.7) Basophils # (Auto) 0.1 x10^3/uL (0.0-0.2) Segmented Neutrophils % 69 % (35-66) Band Neutrophils % 2 % (0-9) Lymphocytes % 15 % (24-48) Monocytes % 8 % (0-10) Eosinophils % 6 % (0-5) Platelet Estimate Increased (ADEQUATE) Large Platelets Few Poikilocytosis Present Anisocytosis Mod Target Cells Mod Ovalocytes Sodium Level 142 mmol/L (136-145) Potassium Level 4.1 mmol/L (3.5-5.1) Chloride Level 109 mmol/L (98-107) Carbon Dioxide Level 25 mmol/L (21-32) Anion Gap 8 (6-14) Blood Urea Nitrogen 7 mg/dL (7-20) Creatinine 0.7 mg/dL (0.6-1.0) Estimated GFR (Cockcroft-Gault) 118.9 Glucose Level 98 mg/dL (70-99) Calcium Level 7.6 mg/dL (8.5-10.1) Magnesium Level 1.8 mg/dL (1.8-2.4) Assessment and Plan Assessmemt and Plan Problems Medical Problems: (1) Sickle cell pain crisis Status: Acute Assessment Acute sickle cell crisis 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 Justifications for Admission Other Justification Sickle cell crisis KRISHNA DENNY III DO Sep 20, 2021 11:24
[2021-09-20 15:00] VITALS: BP 121/75
[2021-09-20] MEDS: RIVAROXABAN 10 MG TABLET. PO SCH (17:03)
[2021-09-20 19:00] VITALS: BP 120/74
[2021-09-20 23:00] VITALS: BP 135/80
[2021-09-21] MEDS: HYDROmorphone 2 MG/ML INJ. IVP PRN ×5 (00:26→11:52)
[2021-09-21 03:00] VITALS: BP 133/78
[2021-09-21] MEDS: diphenhydrAMINE 50 MG/ML VIAL IVP PRN ×2 (03:27→11:52)
[2021-09-21] MEDS: IV NORMAL SALINE 1000ML BAG 1,000 ML IV SCH ×2 (03:45→09:58)
[2021-09-21 07:00] VITALS: BP 126/77
[2021-09-21 07:50] LABS: CALCIUM 7.9 mg/dL (8.5-10.1); CREATININE 0.6 mg/dL (0.6-1.0); MAGNESIUM 1.8 mg/dL (1.8-2.4)
[2021-09-21 08:03] LABS: BASO # 0.1 x10^3/uL (0.0-0.2); BASO % 1 % (0-3); EOS # 0.3 x10^3/uL (0.0-0.7); EOS % 3 % (0-3); HEMATOCRIT 25.1 % (36.0-47.0); HEMOGLOBIN 8.3 g/dL (12.0-15.5); LYMPH % 41 % (24-48); MEAN CORPUSCULAR HEMOGLOBIN 26 pg (25-35); MEAN CORPUSCULAR HGB CONC 33 g/dL (31-37); MEAN CORPUSCULAR VOLUME 78 fL (79-100); MONO # 0.5 x10^3/uL (0.0-1.1); MONO % 5 % (0-9); NEUT % 51 % (31-73); PLATELET COUNT 625 x10^3/uL (140-400); RED BLOOD COUNT 3.23 x10^6/uL (3.50-5.40); RED CELL DISTRIBUTION WIDTH 26.2 % (11.5-14.5); WHITE BLOOD COUNT 9.9 x10^3/uL (4.0-11.0)
[2021-09-21] MEDS: FOLIC ACID 1 MG TABLET. PO SCH (08:43)
[2021-09-21] MEDS: PANTOPRAZOLE 40 MG TABLET.DR. PO SCH (08:44)
[2021-09-21] MEDS: diphenhydrAMINE HCL 25 MG CAPSULE PO PRN (09:42)
--- NOTE | 2021-09-21 10:26 | PDOC ---
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 History of PE History of depression History of MRSA infection History of Present Illness History of Present Illness 09/21/2021 Patient seen and examined Discussed with RN air liaison and special staff has observed medication-seeking behavior Patient status continuing to improve, ready to discharge today with some home pain medication Hematology consult cancelled as patient is ready to discharge Chart reviewed 09/20/2021 Patient seen and examined Discussed with RN Patient continues to improve Patient requests to not receive Benadryl as she does not like side effects Chart reviewed Discussed with patient we are waiting on hematology consult before probable discharge tomorrow 09/19/2021 Patient seen and examined Discussed with RN Patient doing a little better Chart reviewed Vitals/I&O Vitals/I&O: Vital Signs Date Time Temp Pulse Resp B/P (MAP) Pulse Ox O2 Delivery O2 Flow Rate FiO2 09/21/21 08:00 Room Air 09/21/21 07:00 97.9 85 16 126/77 (93) 95 97.9 I & O 09/20/21 09/20/21 09/21/21 15:00 23:00 07:00 Intake Total 540 ml 680 ml Balance 540 ml 680 ml Physical Exam General: Alert Heart: Regular rate Lungs: Clear Abdomen: Normal bowel sounds Extremities: No clubbing Skin: No rashes Labs Labs: Laboratory Tests Test 09/21/21 06:40 White Blood Count 9.9 x10^3/uL (4.0-11.0) Red Blood Count 3.23 x10^6/uL (3.50-5.40) Hemoglobin 8.3 g/dL (12.0-15.5) Hematocrit 25.1 % (36.0-47.0) Mean Corpuscular Volume 78 fL (79-100) Mean Corpuscular Hemoglobin 26 pg (25-35) Mean Corpuscular Hemoglobin Concent 33 g/dL (31-37) Red Cell Distribution Width 26.2 % (11.5-14.5) Platelet Count 625 x10^3/uL (140-400) Neutrophils (%) (Auto) 51 % (31-73) Lymphocytes (%) (Auto) 41 % (24-48) Monocytes (%) (Auto) 5 % (0-9) Eosinophils (%) (Auto) 3 % (0-3) Basophils (%) (Auto) 1 % (0-3) Neutrophils # (Auto) 5.0 x10^3/uL (1.8-7.7) Lymphocytes # (Auto) 4.0 x10^3/uL (1.0-4.8) Monocytes # (Auto) 0.5 x10^3/uL (0.0-1.1) Eosinophils # (Auto) 0.3 x10^3/uL (0.0-0.7) Basophils # (Auto) 0.1 x10^3/uL (0.0-0.2) Sodium Level 143 mmol/L (136-145) Potassium Level 4.0 mmol/L (3.5-5.1) Chloride Level 108 mmol/L (98-107) Carbon Dioxide Level 23 mmol/L (21-32) Anion Gap 12 (6-14) Blood Urea Nitrogen 7 mg/dL (7-20) Creatinine 0.6 mg/dL (0.6-1.0) Estimated GFR (Cockcroft-Gault) 142.0 Glucose Level 96 mg/dL (70-99) Calcium Level 7.9 mg/dL (8.5-10.1) Magnesium Level 1.8 mg/dL (1.8-2.4) Assessment and Plan Assessmemt and Plan Problems Medical Problems: (1) Sickle cell pain crisis Status: Acute Assessment Acute sickle cell crisis 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 Medications: Current Medications Medications (Trade) Dose Ordered Sig/Miguel Route PRN Reason Start Time Stop Time Status Last Admin Dose Admin Diphenhydramine HCl (Benadryl) 50 mg PRN Q6HRS PRN IVP ITCHING 09/20/21 10:45 09/21/21 03:27 Diphenhydramine HCl (Benadryl) 50 mg PRN Q6HRS PRN PO ITCHING 09/20/21 10:45 09/20/21 17:03 Justifications for Admission Other Justification Sickle cell crisis KRISHNA DENNY III DO Sep 21, 2021 10:26
[2021-09-21] MEDS ORDERED: ANTI-COAG MONITOR BY PHARMACY. MC PRN (10:45)
[2021-09-21 11:00] VITALS: BP 130/81
[2021-09-21] MEDS ORDERED: PANT40TA77 PO (11:12)
[2021-09-21] MEDS ORDERED: OXYC1TAB22 PO (11:12)
--- NOTE | 2021-09-21 11:41 | NUR ---
SW following. Discussed with RN, pt from home, room air, regular diet. Discharge order for home with self care. RN advised no SW needs.
--- NOTE | 2021-09-21 11:49 | DS ---
DATE OF DISCHARGE: 09/21/2021 ADMITTING DIAGNOSIS: Sickle cell crisis. DISCHARGE DIAGNOSES: Resolving sickle cell crisis, history of chronic anticoagulation. HOSPITAL COURSE: The patient is a pleasant, middle-aged female who presented with sickle cell crisis. We gave her IV fluids, pain meds, vitamins, oxygen and trended her labs. Today, I saw and examined her. She is at her baseline. We plan to discharge. DISPOSITION: Home. ACTIVITY: As tolerated. DIET: Low sodium. DISCHARGE MEDICATIONS: P.r.n. oxycodone 10 mg q.6 hours p.r.n., Protonix 40 a day, folic acid 10 mg a day and Xarelto 20 daily. TOTAL TIME: 32 minutes. GLENDA/DAVE DR: Cathie TID: [id number]
[2021-09-21] MEDS ORDERED: HEPARIN PF 500 UNIT/5 ML DISP.SYRIN. IVP ONE (12:00)
--- NOTE | 2021-09-21 13:00 | NUR ---
Discharge Note: KETURAH ROQUE Discharge instructions and discharge home medications reviewed with Patient and a copy given. All questions have been answered and understanding verbalized. The following instructions and handouts were given: information about follow up appointment, medications, diet, activity, sickle cell crisis/pain. No driving today. Discontinued lines and drains: Port in left chest heparin locked and de-accessed. Patient discharged to home with self care with family member, wheelchair used for mobility to discharge vehicle.
== END 2021-09-21 12:53 | disposition home or self-care (01) | DRG 812 ==
LOC: ER 11:36 → 4 NORTH 14:30 → OBSVTOIN 09-21 08:10
PROVIDERS: ADMIT Internal Medicine; ATTEND Internal Medicine
DX: D57.00 Hb-SS disease with crisis, unspecified (principal); F32.A Depression, unspecified; F41.9 Anxiety disorder, unspecified; Z79.01 Long term (current) use of anticoagulants; Z86.14 Personal history of Methicillin resistant Staphylococcus aureus infection; Z86.711 Personal history of pulmonary embolism; Z90.49 Acquired absence of other specified parts of digestive tract; Z88.5 Allergy status to narcotic agent
CPT/HCPCS: 36415; 80048; 80053; 80307; 81001; 81025; 83735; 85007; 85025; 85045; 87086; 93005; 93971; 96361; 96374; 96375; 96376; G0378; G0379; J1170; J1200; J1642; J2405; J7030; 99285-25; Q0163

== ENCOUNTER 2021-09-24 08:41 | Emergency (ER) | payer MEDICARE, MEDICAID ==
[~2021-09-24] VITALS: Ht 162.6 cm; Wt 65.1 kg
[~2021-09-24 08:41] MED LIST changes: +PANT40TA77 PO
[2021-09-24] MEDS ORDERED: HYDROmorphone 2 MG/ML INJ. IVP ONE ×2 (09:15→10:15)
[2021-09-24 09:30] LABS: BASO # 0.1 x10^3/uL (0.0-0.2); BASO % 1 % (0-3); EOS # 0.4 x10^3/uL (0.0-0.7); EOS % 4 % (0-3); HEMATOCRIT 26.2 % (36.0-47.0); HEMOGLOBIN 8.7 g/dL (12.0-15.5); LYMPH # 1.9 x10^3/uL (1.0-4.8); LYMPH % 19 % (24-48); MEAN CORPUSCULAR HEMOGLOBIN 25 pg (25-35); MEAN CORPUSCULAR HGB CONC 33 g/dL (31-37); MEAN CORPUSCULAR VOLUME 74 fL (79-100); MONO # 0.5 x10^3/uL (0.0-1.1); MONO % 5 % (0-9); NEUT # 7.1 x10^3/uL (1.8-7.7); NEUT % 71 % (31-73); PLATELET COUNT 783 x10^3/uL (140-400); RED BLOOD COUNT 3.52 x10^6/uL (3.50-5.40); RED CELL DISTRIBUTION WIDTH 30.4 % (11.5-14.5); WHITE BLOOD COUNT 10.1 x10^3/uL (4.0-11.0)
[2021-09-24] MEDS ORDERED: diphenhydrAMINE 50 MG/ML VIAL IVP ONE ×2 (09:30→10:15)
[2021-09-24 09:37] LABS: CALCIUM 8.1 mg/dL (8.5-10.1); CREATININE 0.6 mg/dL (0.6-1.0); POTASSIUM 3.5 mmol/L (3.5-5.1)
[2021-09-24 09:50] LABS: BILIRUBIN,URINE NEGATIVE (NEG); CLARITY,URINE CLEAR; COLOR,URINE YELLOW; NITRITE,URINE NEGATIVE (NEG); PH,URINE 7.5 (<5.0-8.0); PROTEIN,URINE NEGATIVE (NEG-TRACE); UROBILINOGEN,URINE 0.2 mg/dL (0.2 mg/dL)
[2021-09-24 09:54] LABS: ALBUMIN 3.4 g/dL (3.4-5.0); ALBUMIN/GLOBULIN RATIO 0.7 (1.0-1.7); TOTAL BILIRUBIN 0.3 mg/dL (0.2-1.0)
[2021-09-24 10:17] LABS: BACTERIA,URINE 0 /HPF (0-FEW)
[2021-09-24 10:32] VITALS: BP 111/69
--- NOTE | 2021-09-24 10:57 | PHYS DOC ---
Past Medical History Past Medical History: Anxiety, Depression, Sickle Cell Disease, Other Additional Past Medical Histor: APHORESIS-REG BLOOD TRANSFUSIONS,PE,BLOOD/BONE INFECTION Past Surgical History: Cholecystectomy, Other Additional Past Surgical Histo: port in right AND LEFT Smoking Status: Former Smoker Alcohol Use: Occasionally Drug Use: None General Adult EDM: Chief Complaint: LOWER EXT PAIN HPI: HPI: Patient is a 31 year old female with history of sickle cell anemia who presents with right lower extremity pain, consistent with prior sickle cell crisis. She rates her pain 10/10 and nonradiating. Patient denies chest pain. She states she is out of her pain medication currently, so has not taken anything yet today. Review of Systems: Review of Systems: ROS negative or noncontributory except as mentioned in HPI. Heart Score: C/O Chest Pain: No Current Medications: Current Medications Medications (Trade) Dose Ordered Sig/Miguel Start Time Stop Time Status Last Admin Dose Admin Diphenhydramine HCl (Benadryl) 25 mg 1X ONCE 09/24/21 10:15 09/24/21 10:16 DC 09/24/21 10:16 25 MG Hydromorphone HCl (Dilaudid) 2 mg 1X ONCE 09/24/21 10:15 09/24/21 10:16 DC 09/24/21 10:17 2 MG Allergies: Allergies: Allergies Coded Allergies Type Severity Reaction Last Updated Verified morphine Allergy Intermediate ITCHING 01/12/19 Yes ibuprofen Allergy Unknown Itching 09/24/21 Yes Physical Exam: PE: Constitutional: Well developed, well nourished, no acute distress, non-toxic appearance, patient appears to be in pain. HENT: Normocephalic, atraumatic, bilateral external ears normal, nose normal. Eyes: EOMI, conjunctiva normal, no discharge. Neck: Normal range of motion, no stridor. Skin: Warm, dry, no erythema, no rash. Back: No tenderness. Extremities: No deformity, no cyanosis, no clubbing, ROM intact, no edema. Neurologic: Alert and oriented x4, no focal deficits noted. Current Patient Data: Labs: Laboratory Tests Test 09/24/21 09:15 09/24/21 09:30 White Blood Count 10.1 x10^3/uL (4.0-11.0) Red Blood Count 3.58 x10^6/uL (3.50-5.70) Hemoglobin 8.7 g/dL (12.0-15.5) L Hematocrit 26.2 % (36.0-47.0) L Mean Corpuscular Volume 74 fL (79-100) #L Mean Corpuscular Hemoglobin 25 pg (25-35) Mean Corpuscular Hemoglobin Concent 33 g/dL (31-37) Red Cell Distribution Width 30.4 % (11.5-14.5) H Platelet Count 783 x10^3/uL (140-400) H Neutrophils (%) (Auto) 71 % (31-73) Lymphocytes (%) (Auto) 19 % (24-48) L Monocytes (%) (Auto) 5 % (0-9) Eosinophils (%) (Auto) 4 % (0-3) H Basophils (%) (Auto) 1 % (0-3) Neutrophils # (Auto) 7.1 x10^3/uL (1.8-7.7) Lymphocytes # (Auto) 1.9 x10^3/uL (1.0-4.8) Monocytes # (Auto) 0.5 x10^3/uL (0.0-1.1) Eosinophils # (Auto) 0.4 x10^3/uL (0.0-0.7) Basophils # (Auto) 0.1 x10^3/uL (0.0-0.2) Platelet Estimate Pending Absolute Reticulocyte Count 0.059 x10^6/uL (0.020-0.120) Percent Reticulocyte Count 1.6 % (0.5-2.3) Immature Reticulocyte Fraction 0.54 (0.20-0.60) Sodium Level 139 mmol/L (136-145) Potassium Level 3.5 mmol/L (3.5-5.1) Chloride Level 104 mmol/L (98-107) Carbon Dioxide Level 25 mmol/L (21-32) Anion Gap 10 (6-14) Blood Urea Nitrogen 5 mg/dL (7-20) L Creatinine 0.6 mg/dL (0.6-1.0) Estimated GFR (Cockcroft-Gault) 142.0 BUN/Creatinine Ratio 8 (6-20) Glucose Level 98 mg/dL (70-99) Calcium Level 8.1 mg/dL (8.5-10.1) L Total Bilirubin 0.3 mg/dL (0.2-1.0) Aspartate Amino Transferase (AST) 37 U/L (15-37) Alanine Aminotransferase (ALT) 27 U/L (14-59) Alkaline Phosphatase 72 U/L (46-116) Total Protein 8.0 g/dL (6.4-8.2) Albumin 3.4 g/dL (3.4-5.0) Albumin/Globulin Ratio 0.7 (1.0-1.7) L Urine Collection Type Unknown Urine Color Yellow Urine Clarity Clear Urine pH 7.5 (<5.0-8.0) Urine Specific [place] 1.015 (1.000-1.030) Urine Protein Negative mg/dL (NEG-TRACE) Urine Glucose (UA) Negative mg/dL (NEG) Urine Ketones (Stick) Negative mg/dL (NEG) Urine Blood Negative (NEG) Urine Nitrite Negative (NEG) Urine Bilirubin Negative (NEG) Urine Urobilinogen Dipstick 0.2 mg/dL (0.2 mg/dL) Urine Leukocyte Esterase Negative (NEG) Urine RBC 1-2 /HPF (0-2) Urine WBC 1-4 /HPF (0-4) Urine Squamous Epithelial Cells Many /LPF Urine Bacteria 0 /HPF (0-FEW) Urine Mucus Slight /LPF Laboratory Tests 09/24/21 09:15 Laboratory Tests 09/24/21 09:15 Vital Signs: Vital Signs Date Time Temp Pulse Resp B/P (MAP) Pulse Ox O2 Delivery O2 Flow Rate FiO2 09/24/21 10:32 78 111/69 (83) 99 Room Air 09/24/21 08:48 98.3 115 16 114/80 (91) 99 Room Air 98.3 Course & Med Decision Making: Course & Med Decision Making Pertinent Labs and Imaging studies reviewed. (See chart for details) Patient is a 31-year-old female who is well-known to the emergency department for sickle cell crisis. She presents today with right lower extremity pain, consistent with prior visits. She rates her pain 10/10 nonradiating. After first dose of 2 mg Dilaudid, patient states her pain is now 6/10. She requests an additional dose. On reevaluation after second dose of Dilaudid, patient rates her pain 4/10 and feels comfortable enough to go home. Discussed avoiding crisis triggers with the patient. She believes she was unable to picker and sorter load and unload the Percocet prescribed to her on her discharge the other day due to her refill not being scheduled for another couple of days. I advised that she go to the pharmacy immediately to try to picker and sorter load and unload her prescription. If she has any issues, the pharmacist should call the emergency department. She is in an acute pain crisis, and therefore justified in picking up Percocet. Return precautions were provided. Patient understands and is agreeable to discharge plan. Jasonon Disclaimer: Jose Disclaimer: This electronic medical record was generated, in whole or in part, using a voice recognition dictation system. Departure Departure Impression: Primary Impression: Sickle cell pain crisis Disposition: HOME / SELF CARE / HOMELESS Condition: IMPROVED Referrals: NO PCP (PCP) Patient Instructions: Sickle Cell Pain Crisis, [id number] Additional Instructions: EMERGENCY DEPARTMENT GENERAL DISCHARGE INSTRUCTIONS Thank you for coming to [facility] Emergency Department (ED) today and trusting us with you care. We trust that you had a positive experience in our Emergency Department. If you wish to speak to the department management, you may call the director at . YOUR FOLLOW UP INSTRUCTIONS ARE FOLLOWS: 1. Follow up with your primary care doctor. If you do not have a primary doctor, please ask for a resource list of physicians or clinics that may be able to assist you with follow up care. 2. The emergency provider has interpreted your imaging studies, if any were ordered. The radiology media services specialist also reviewed them. If there is a change in the findings, you will be notified in 48 hours when at all possible. 3. If a lab test or culture has been done, your results will be reviewed and you will be notified if you need a change in treatment. 4. Follow instructions verbalized to you and refer to the printouts if needed. ADDITIONAL INSTRUCTIONS AND INFORMATION: 1. Your care today has been supervised by a physician who is specially trained in emergency care. Many problems require more than one evaluation for a complete diagnosis and treatment. We recommend that you schedule your follow up appointment as recommended to ensure complete treatment of you illness or injury. If you are unable to obtain follow up care and continue to have a problem, or if your condition worsens, we recommend that you return to the ED. 2. We are not able to safely determine your condition over the phone nor are we able to give sound medical advice over the phone. For these safety reasons, if you call for medical advice we will ask you to come to the ED for further evaluation. 3. If you have any questions regarding these discharge instructions please call the ED at . SAFETY INFORMATION: In the interest of safety, wellness, and injury prevention; we encourage you to wear your seat belt, if you smoke; quite smoking, and we encourage family to use a protective helmet for bicycling and other sporting events that present an increased risk for head injury. IF YOUR SYMPTOMS WORSEN OR NEW SYMPTOMS DEVELOP, OR YOU HAVE CONCERNS ABOUT YOUR CONDITION; OR IF YOUR CONDITION WORSENS WHILE YOU ARE WAITING FOR YOUR FOLLOW UP APPOINTMENT; EITHER CONTACT YOUR PRIMARY CARE DOCTOR, THE PHYSICIAN WHOSE NAME AND NUMBER YOU WERE GIVEN, OR RETURN TO THE ED IMMEDIATELY. ROWENA BEASLEY Sep 24, 2021 10:56
[2021-09-24 11:06] LABS: % EOS 5 % (0-5); % LYMPHS 13 % (24-48); % MONOS 9 % (0-10); % SEGS 73 % (35-66); ANISOCYTOSIS MOD; MICROCYTOSIS SLIGHT; PLT ESTIMATE INCREASED (ADEQUATE)
[2021-09-24 11:07] LABS: HYPOCHROMIA MOD; POLYCHROMASIA SLIGHT; TARGET CELLS MOD
[2021-09-24 11:08] LABS: OVALOCYTES FEW; TEAR DROP CELLS OCC
== END 2021-09-24 11:16 | disposition home or self-care (01) ==
LOC: ER 08:41
DX: D57.00 Hb-SS disease with crisis, unspecified (principal); Z87.891 Personal history of nicotine dependence; Z88.5 Allergy status to narcotic agent; Z88.8 Allergy status to other drugs, medicaments and biological substances
CPT/HCPCS: 36415; 80053; 81001; 85007; 85025; 85045; 96374; 96375; 96376; 99284; J1170; J1200

== ENCOUNTER 2021-10-12 10:44 | Emergency (ER) | payer MEDICARE, MEDICAID ==
[~2021-10-12] VITALS: Ht 162.6 cm; Wt 62.8 kg
[2021-10-12] MEDS ORDERED: IV NORMAL SALINE 1000ML BAG 1,000 ML IV ONE (12:30)
[2021-10-12] MEDS ORDERED: diphenhydrAMINE HCL 25 MG CAPSULE PO ONE (12:45)
[2021-10-12] MEDS ORDERED: HYDROmorphone 2 MG/ML INJ. IVP ONE ×2 (12:45→15:00)
[2021-10-12 13:17] LABS: CALCIUM 8.3 mg/dL (8.5-10.1); CREATININE 0.6 mg/dL (0.6-1.0); POTASSIUM 4.1 mmol/L (3.5-5.1)
[2021-10-12 13:20] LABS: BASO # 0.1 x10^3/uL (0.0-0.2); BASO % 1 % (0-3); EOS # 0.2 x10^3/uL (0.0-0.7); EOS % 1 % (0-3); HEMATOCRIT 30.3 % (36.0-47.0); HEMOGLOBIN 9.7 g/dL (12.0-15.5); LYMPH # 4.3 x10^3/uL (1.0-4.8); LYMPH % 33 % (24-48); MEAN CORPUSCULAR HEMOGLOBIN 25 pg (25-35); MEAN CORPUSCULAR HGB CONC 32 g/dL (31-37); MEAN CORPUSCULAR VOLUME 78 fL (79-100); MONO # 0.4 x10^3/uL (0.0-1.1); MONO % 3 % (0-9); NEUT # 8.1 x10^3/uL (1.8-7.7); NEUT % 62 % (31-73); PLATELET COUNT 326 x10^3/uL (140-400); RED BLOOD COUNT 3.87 x10^6/uL (3.50-5.40); WHITE BLOOD COUNT 13.1 x10^3/uL (4.0-11.0)
[2021-10-12 13:23] LABS: ALBUMIN 3.7 g/dL (3.4-5.0); ALBUMIN/GLOBULIN RATIO 0.9 (1.0-1.7); TOTAL BILIRUBIN 0.4 mg/dL (0.2-1.0); TOTAL PROTEIN 7.8 g/dL (6.4-8.2)
--- NOTE | 2021-10-12 14:57 | PHYS DOC ---
Past Medical History Past Medical History: Anxiety, Depression, Sickle Cell Disease, Other Additional Past Medical Histor: APHORESIS-REG BLOOD TRANSFUSIONS,PE,BLOOD/BONE INFECTION Past Surgical History: Cholecystectomy, Other Additional Past Surgical Histo: port in right AND LEFT Smoking Status: Never Smoker Alcohol Use: Occasionally Drug Use: None General Adult EDM: Chief Complaint: UPPER EXTREMITY PAIN HPI: HPI: Patient is a 31-year-old female that presents today with left arm pain. Patient states that around 2 AM she woke up and she has been having pain in her left arm related to a sickle cell crisis, she said she took her last opioid medication today and presents today because she called her sickle cell clinic and they were unable to get her in for refill of her medication. Patient denies chest pain, shortness of breath, or fever and chills. Review of Systems: Review of Systems: Constitutional: Denies fever or chills. [] Eyes: Denies change in visual acuity. [] HENT: Denies nasal congestion or sore throat. [] Respiratory: Denies cough or shortness of breath. [] Cardiovascular: Denies chest pain or edema. [] GI: Denies abdominal pain, nausea, vomiting, bloody stools or diarrhea. [] : Denies dysuria. [] Musculoskeletal: Left arm pain Integument: Denies rash. [] Neurologic: Denies headache, focal weakness or sensory changes. [] Endocrine: Denies polyuria or polydipsia. [] Lymphatic: Denies swollen glands. [] Psychiatric: Denies depression or anxiety. [] Heart Score: C/O Chest Pain: No Risk Factors: Risk Factors: DM, Current or recent (<one month) smoker, HTN, HLP, family history of CAD, obesity. Risk Scores: Score 0 - 3: 2.5% MACE over next 6 weeks - Discharge Home Score 4 - 6: 20.3% MACE over next 6 weeks - Admit for Clinical Observation Score 7 - 10: 72.7% MACE over next 6 weeks - Early Invasive Strategies Current Medications: Current Medications Medications (Trade) Dose Ordered Sig/Miguel Start Time Stop Time Status Last Admin Dose Admin Diphenhydramine HCl (Benadryl) 50 mg 1X ONCE 10/12/21 12:45 10/12/21 12:46 DC 10/12/21 13:01 50 MG Hydromorphone HCl (Dilaudid) 2 mg 1X ONCE 10/12/21 12:45 10/12/21 12:46 DC 10/12/21 13:01 2 MG Sodium Chloride 1,000 ml @ 999 mls/hr 1X ONCE 10/12/21 12:30 10/12/21 13:30 DC 10/12/21 13:01 999 MLS/HR Allergies: Allergies: Allergies Coded Allergies Type Severity Reaction Last Updated Verified morphine Allergy Intermediate ITCHING 01/12/19 Yes ibuprofen Allergy Unknown Itching 09/24/21 Yes Physical Exam: PE: Constitutional: Well developed, well nourished, mild distress, non-toxic appearance. [] HENT: Normocephalic, atraumatic, bilateral external ears normal, oropharynx moist, no oral exudates, nose normal. [] Eyes: PERRLA, EOMI, conjunctiva normal, no discharge. [] Neck: Normal range of motion, no tenderness, supple, no stridor. [] Cardiovascular:Heart rate regular rhythm, no murmur [] Lungs & Thorax: Bilateral breath sounds clear to auscultation [] Abdomen: Bowel sounds normal, soft, no tenderness, no masses, no pulsatile m asses. [] Skin: Warm, dry, no erythema, no rash. [] Back: No tenderness, no CVA tenderness. [] Extremities: Peripheral pulses are 2+, left arm shows no ecchymosis no lacerations no abrasions no contusions noted cap refill is less than 2 seconds in the left arm, with sensory is intact. Neurologic: Alert and oriented X 3, normal motor function, normal sensory function, no focal deficits noted. [] Psychologic: Affect normal, judgement normal, mood normal. [] Current Patient Data: Labs: Laboratory Tests Test 10/12/21 11:24 10/12/21 12:55 POC Urine HCG, Qualitative Hcg negative (Negative) White Blood Count 13.1 x10^3/uL (4.0-11.0) H Red Blood Count 3.92 x10^6/uL (3.50-5.70) Hemoglobin 9.7 g/dL (12.0-15.5) L Hematocrit 30.3 % (36.0-47.0) L Mean Corpuscular Volume 78 fL (79-100) L Mean Corpuscular Hemoglobin 25 pg (25-35) Mean Corpuscular Hemoglobin Concent 32 g/dL (31-37) Red Cell Distribution Width 21.0 % (11.5-14.5) H Platelet Count 326 x10^3/uL (140-400) Neutrophils (%) (Auto) 62 % (31-73) Lymphocytes (%) (Auto) 33 % (24-48) Monocytes (%) (Auto) 3 % (0-9) Eosinophils (%) (Auto) 1 % (0-3) Basophils (%) (Auto) 1 % (0-3) Neutrophils # (Auto) 8.1 x10^3/uL (1.8-7.7) H Lymphocytes # (Auto) 4.3 x10^3/uL (1.0-4.8) Monocytes # (Auto) 0.4 x10^3/uL (0.0-1.1) Eosinophils # (Auto) 0.2 x10^3/uL (0.0-0.7) Basophils # (Auto) 0.1 x10^3/uL (0.0-0.2) Platelet Estimate Pending Absolute Reticulocyte Count 0.154 x10^6/uL (0.020-0.120) Percent Reticulocyte Count 3.9 % (0.5-2.3) H Immature Reticulocyte Fraction 0.40 (0.20-0.60) Sodium Level 140 mmol/L (136-145) Potassium Level 4.1 mmol/L (3.5-5.1) Chloride Level 106 mmol/L (98-107) Carbon Dioxide Level 21 mmol/L (21-32) Anion Gap 13 (6-14) Blood Urea Nitrogen 5 mg/dL (7-20) L Creatinine 0.6 mg/dL (0.6-1.0) Estimated GFR (Cockcroft-Gault) 142.0 BUN/Creatinine Ratio 8 (6-20) Glucose Level 92 mg/dL (70-99) Calcium Level 8.3 mg/dL (8.5-10.1) L Total Bilirubin 0.4 mg/dL (0.2-1.0) Aspartate Amino Transferase (AST) 12 U/L (15-37) L Alanine Aminotransferase (ALT) 15 U/L (14-59) Alkaline Phosphatase 67 U/L (46-116) Total Protein 7.8 g/dL (6.4-8.2) Albumin 3.7 g/dL (3.4-5.0) Albumin/Globulin Ratio 0.9 (1.0-1.7) L Laboratory Tests 10/12/21 12:55 Laboratory Tests 10/12/21 12:55 Vital Signs: Vital Signs Date Time Temp Pulse Resp B/P (MAP) Pulse Ox O2 Delivery O2 Flow Rate FiO2 10/12/21 15:56 16 100 Room Air 10/12/21 15:29 76 104/69 (81) 100 Room Air 10/12/21 15:26 16 100 Room Air 10/12/21 14:59 70 128/80 (96) 100 Room Air 10/12/21 14:29 78 123/73 (90) 100 Room Air 10/12/21 13:59 76 125/71 (89) 100 Room Air 10/12/21 13:31 16 100 Room Air 10/12/21 13:29 78 133/78 (96) 100 Room Air 10/12/21 13:01 17 100 Room Air 10/12/21 12:59 132/71 (91) Room Air 10/12/21 10:55 98.9 96 18 115/78 (90) 100 Room Air 98.9 Vital Signs Date Time Temp Pulse Resp B/P (MAP) Pulse Ox O2 Delivery O2 Flow Rate FiO2 10/12/21 13:01 17 100 Room Air 10/12/21 10:55 98.9 96 115/78 (90) 98.9 EKG: EKG: [] Radiology/Procedures: Radiology/Procedures: [] Course & Med Decision Making: Course & Med Decision Making Pertinent Labs and Imaging studies reviewed. (See chart for details) 1450 reassessment of patient shows her pain has improved somewhat is now down to a 6 out of 10, I did inform her that I will give her another dose of Dilaudid for pain and if that does not improve her pain will admit her for pain control for her sickle cell crisis. Patient is agreeable with the plan of care. 1600 reassessment of patient shows her pain is now improved to 3 out of 10, she is requesting to go home and to manage the sickle cell crisis on an outpatient basis, she said she was able to get of hold of her clinic at the [facility] and get a refill of her Percocet sent to the pharmacy, she states that she has been go to the pharmacy and get her prescription and go home and manage the sickle cell crisis at home. Patient is able to take by mouth fluid, denies shortness of breath or chest pain at this time. Patient was given return precautions and is agreeable with the plan of care. Dragon Disclaimer: Dragon Disclaimer: This electronic medical record was generated, in whole or in part, using a voice recognition dictation system. Departure Departure Impression: Primary Impression: Sickle cell pain crisis Disposition: HOME / SELF CARE / HOMELESS Condition: STABLE Referrals: NO PCP (PCP) Patient Instructions: Sickle Cell Pain Crisis Additional Instructions: Take your pain medication as prescribed by your sickle cell clinic as directed Increase by mouth fluid Follow-up with your sickle cell clinic at the [facility] in the next couple of days if you continue to have pain Return to the emergency department if you experience increased shortness of breath, chest pain, or pain that is not relieved by your pain medication at home. EARLINE COVINGTON APRN Oct 12, 2021 14:57
[2021-10-12 15:59] VITALS: BP 112/56
[2021-10-12 18:22] LABS: % BASOS 1 % (0-3); % EOS 1 % (0-5); % LYMPHS 18 % (24-48); % MONOS 5 % (0-10); % SEGS 75 % (35-66); NUCLEATED RBC 1; PLT ESTIMATE ADEQUATE (ADEQUATE)
[2021-10-12 18:23] LABS: ANISOCYTOSIS MOD; MICROCYTOSIS SLIGHT; POIKILOCYTOSIS SLIGHT; TARGET CELLS PRESENT
[2021-10-12 18:24] LABS: OVALOCYTES PRESENT
== END 2021-10-12 16:16 | disposition home or self-care (01) ==
LOC: ER 10:44
DX: D57.00 Hb-SS disease with crisis, unspecified (principal); Z88.5 Allergy status to narcotic agent; Z88.8 Allergy status to other drugs, medicaments and biological substances
CPT/HCPCS: 36415; 80053; 81025; 85007; 85025; 85045; 96361; 96374; 96376; 99284; J1170; J7030; Q0163

== ENCOUNTER 2021-11-03 09:45 | Emergency (ER) | payer MEDICARE, MEDICAID ==
[~2021-11-03] VITALS: Ht 154.9 cm; Wt 62.7 kg
--- NOTE | 2021-11-03 10:04 | PHYS DOC ---
Past Medical History Past Medical History: Anxiety, Depression, Sickle Cell Disease, Other Additional Past Medical Histor: APHORESIS-REG BLOOD TRANSFUSIONS,PE,BLOOD/BONE INFECTION Past Surgical History: No Surgical History Additional Past Surgical Histo: port in right AND LEFT Smoking Status: Never Smoker Alcohol Use: Occasionally Drug Use: None Adult General Chief Complaint Chief Complaint: LOWER EXT PAIN HPI HPI Patient is a 31 year old female presenting to emergency department for evaluation of right leg pain that has been going on since yesterday. She says this pain is typical of her sickle cell pain. She follows at [facility] and usually takes Percocet for pain but she says it has not been helping at home. She denies any injury or overuse and there is no redness swelling and she denies fevers chills chest pain cough or shortness of breath. She is in no acute distress with normal vital signs. Review of Systems Review of Systems Constitutional: Denies fever or chills [] Eyes: Denies change in visual acuity, redness, or eye pain [] HENT: Denies nasal congestion or sore throat [] Respiratory: Denies cough or shortness of breath [] Cardiovascular: No additional information not addressed in HPI [] GI: Denies abdominal pain, nausea, vomiting, bloody stools or diarrhea [] : Denies dysuria or hematuria [] Musculoskeletal: Positive muscle and joint pain in the right leg Integument: Denies rash or skin lesions [] Neurologic: Denies headache, focal weakness or sensory changes [] All other systems were reviewed and found to be within normal limits, except as documented in this note. Current Medications Current Medications Current Medications Medications (Trade) Dose Ordered Sig/Miguel Start Time Stop Time Status Last Admin Dose Admin Diphenhydramine HCl (Benadryl) 25 mg 1X ONCE 11/03/21 13:00 11/03/21 13:01 DC Hydromorphone HCl (Dilaudid) 1 mg 1X ONCE 11/03/21 13:00 11/03/21 13:01 DC Ondansetron HCl (Zofran) 8 mg 1X ONCE 11/03/21 10:15 11/03/21 10:18 DC 11/03/21 10:45 8 MG Sodium Chloride 1,000 ml @ 1,000 mls/hr 1X ONCE 11/03/21 10:15 11/03/21 11:14 DC 11/03/21 10:45 1,000 MLS/HR Allergies Allergies Allergies Coded Allergies Type Severity Reaction Last Updated Verified ibuprofen Allergy Intermediate Itching 11/03/21 Yes morphine Allergy Intermediate ITCHING 11/03/21 Yes Physical Exam Physical Exam Constitutional: Well developed, well nourished, no acute distress, non-toxic appearance. [] HENT: Normocephalic, atraumatic, bilateral external ears normal, oropharynx moist, no oral exudates, nose normal. [] Eyes: PERRLA, EOMI, conjunctiva normal, no discharge. [] Neck: Normal range of motion, no tenderness, supple, no stridor. [] Cardiovascular:Heart rate regular rhythm, no murmur [] Lungs & Thorax: Bilateral breath sounds clear to auscultation [] Abdomen: Bowel sounds normal, soft, no tenderness, no masses, no pulsatile masses. [] Skin: Warm, dry, no erythema, no rash. [] Back: No tenderness, no CVA tenderness. [] Extremities: No tenderness, no cyanosis, no clubbing, ROM intact, no edema. [] Neurologic: Alert and oriented X 3, normal motor function, normal sensory function, no focal deficits noted. [] Current Patient Data Vital Signs Vital Signs Date Time Temp Pulse Resp B/P (MAP) Pulse Ox O2 Delivery O2 Flow Rate FiO2 11/03/21 12:00 16 100 Room Air 11/03/21 09:55 98.6 95 118/82 (94) 98.6 Lab Values Laboratory Tests Test 11/03/21 10:09 11/03/21 10:33 POC Urine HCG, Qualitative Hcg negative (Negative) White Blood Count 10.0 x10^3/uL (4.0-11.0) Red Blood Count 4.16 x10^6/uL (3.50-5.70) Hemoglobin 9.1 g/dL (12.0-15.5) L Hematocrit 28.3 % (36.0-47.0) L Mean Corpuscular Volume 68 fL (79-100) L Mean Corpuscular Hemoglobin 22 pg (25-35) L Mean Corpuscular Hemoglobin Concent 32 g/dL (31-37) Red Cell Distribution Width 33.6 % (11.5-14.5) H Platelet Count 88 x10^3/uL (140-400) L Neutrophils (%) (Auto) 68 % (31-73) Lymphocytes (%) (Auto) 24 % (24-48) Monocytes (%) (Auto) 5 % (0-9) Eosinophils (%) (Auto) 2 % (0-3) Basophils (%) (Auto) 1 % (0-3) Neutrophils # (Auto) 6.8 x10^3/uL (1.8-7.7) Lymphocytes # (Auto) 2.4 x10^3/uL (1.0-4.8) Monocytes # (Auto) 0.5 x10^3/uL (0.0-1.1) Eosinophils # (Auto) 0.2 x10^3/uL (0.0-0.7) Basophils # (Auto) 0.1 x10^3/uL (0.0-0.2) Platelet Estimate Decreased (ADEQUATE) Hypochromasia Present Microcytosis Present Target Cells Present Absolute Reticulocyte Count 0.063 x10^6/uL (0.020-0.120) Percent Reticulocyte Count 1.5 % (0.5-2.3) Immature Reticulocyte Fraction 0.47 (0.20-0.60) Sodium Level 137 mmol/L (136-145) Potassium Level 3.8 mmol/L (3.5-5.1) Chloride Level 104 mmol/L (98-107) Carbon Dioxide Level 22 mmol/L (21-32) Anion Gap 11 (6-14) Blood Urea Nitrogen 6 mg/dL (7-20) L Creatinine 0.6 mg/dL (0.6-1.0) Estimated GFR (Cockcroft-Gault) 142.0 BUN/Creatinine Ratio 10 (6-20) Glucose Level 92 mg/dL (70-99) Calcium Level 8.5 mg/dL (8.5-10.1) Total Bilirubin 0.4 mg/dL (0.2-1.0) Aspartate Amino Transferase (AST) 16 U/L (15-37) Alanine Aminotransferase (ALT) 11 U/L (14-59) L Alkaline Phosphatase 68 U/L (46-116) Total Protein 8.3 g/dL (6.4-8.2) H Albumin 3.8 g/dL (3.4-5.0) Albumin/Globulin Ratio 0.8 (1.0-1.7) L Laboratory Tests 11/03/21 10:33 Laboratory Tests 11/03/21 10:33 EKG EKG [] Radiology/Procedures Radiology/Procedures [] Course & Med Decision Making Course & Med Decision Making Looking through the records it appears that patient gets 2 mg of Dilaudid IV when she comes here in the patient says that she also gets Benadryl and IV fluids. Patient's pain did improve after 5 total milligrams of Dilaudid in addition to 75 mg of Benadryl and IV fluids. I did tell patient about all her lab findings and she said the platelets have been low and she is following with her gas scrubber operator for this. I told her to call and let them know again to see if they want to change her treatment. Patient also has anemia that is baseline and reticulocyte count that is near baseline. Patient's pain is down to a 3 out of 10 and she is asking to go home to I will discharge her in stable condition told to follow with her gas scrubber operator at and come back to emergency department sooner with worsening pain neurologic changes or other general concerns. Patient aware and agreeable with plan and verbalized understanding of the above instructions. Dragon Disclaimer Dragon Disclaimer This electronic medical record was generated, in whole or in part, using a voice recognition dictation system. Departure Departure Impression: Primary Impression: Sickle cell pain crisis Additional Impressions: Thrombocytopenia Anemia Disposition: 01 HOME / SELF CARE / HOMELESS Condition: STABLE Referrals: NO PCP (PCP) Patient Instructions: Sickle Cell Pain Crisis Problem Qualifiers JOHN HUGGINS DO Nov 03, 2021 10:04
[2021-11-03] MEDS ORDERED: IV NORMAL SALINE 1000ML BAG 1,000 ML IV ONE (10:15)
[2021-11-03] MEDS ORDERED: HYDROmorphone 2 MG/ML INJ. IVP ONE ×3 (10:15→13:00)
[2021-11-03] MEDS ORDERED: ONDANSETRON PF 4 MG/2 ML VIAL. IVP ONE (10:15)
[2021-11-03] MEDS ORDERED: diphenhydrAMINE 50 MG/ML VIAL IVP ONE ×2 (10:15→13:00)
[2021-11-03 10:47] LABS: BASO # 0.1 x10^3/uL (0.0-0.2); BASO % 1 % (0-3); EOS # 0.2 x10^3/uL (0.0-0.7); EOS % 2 % (0-3); HEMATOCRIT 28.3 % (36.0-47.0); HEMOGLOBIN 9.1 g/dL (12.0-15.5); LYMPH # 2.4 x10^3/uL (1.0-4.8); LYMPH % 24 % (24-48); MEAN CORPUSCULAR HEMOGLOBIN 22 pg (25-35); MEAN CORPUSCULAR HGB CONC 32 g/dL (31-37); MEAN CORPUSCULAR VOLUME 68 fL (79-100); MONO # 0.5 x10^3/uL (0.0-1.1); MONO % 5 % (0-9); NEUT # 6.8 x10^3/uL (1.8-7.7); NEUT % 68 % (31-73); PLATELET COUNT 88 x10^3/uL (140-400); RED BLOOD COUNT 4.14 x10^6/uL (3.50-5.40); RED CELL DISTRIBUTION WIDTH 33.6 % (11.5-14.5)
[2021-11-03 11:04] LABS: CALCIUM 8.5 mg/dL (8.5-10.1); CREATININE 0.6 mg/dL (0.6-1.0); POTASSIUM 3.8 mmol/L (3.5-5.1)
[2021-11-03 11:10] LABS: ALBUMIN 3.8 g/dL (3.4-5.0); ALBUMIN/GLOBULIN RATIO 0.8 (1.0-1.7); TOTAL BILIRUBIN 0.4 mg/dL (0.2-1.0); TOTAL PROTEIN 8.3 g/dL (6.4-8.2)
[2021-11-03 11:34] LABS: HYPOCHROMIA PRESENT; MICROCYTOSIS PRESENT; PLT ESTIMATE DECREASED (ADEQUATE); TARGET CELLS PRESENT
[2021-11-03 13:41] VITALS: BP 109/74
[2021-11-03] MEDS ORDERED: HEPARIN PF 500 UNIT/5 ML DISP.SYRIN. IVP ONE (13:45)
== END 2021-11-03 14:00 | disposition home or self-care (01) ==
LOC: ER 09:45
DX: D57.00 Hb-SS disease with crisis, unspecified (principal); D69.6 Thrombocytopenia, unspecified; D64.9 Anemia, unspecified; Z88.5 Allergy status to narcotic agent; Z88.8 Allergy status to other drugs, medicaments and biological substances
CPT/HCPCS: 36415; 80053; 81025; 85025; 85045; 96361; 96374; 96375; 96376; 99285; J1170; J1200; J1642; J2405; J7030

== ENCOUNTER 2021-11-05 13:04 | Emergency (ER) | payer MEDICARE, MEDICAID ==
[~2021-11-05] VITALS: Ht 162.6 cm; Wt 62.6 kg
[2021-11-05] MEDS ORDERED: HYDROmorphone 2 MG/ML INJ. IVP ONE ×2 (13:30→14:15)
[2021-11-05] MEDS ORDERED: diphenhydrAMINE 50 MG/ML VIAL IVP ONE ×2 (13:30→15:00)
[2021-11-05] MEDS ORDERED: ONDANSETRON PF 4 MG/2 ML VIAL. IVP ONE ×2 (13:30→14:15)
[2021-11-05] MEDS ORDERED: IV NORMAL SALINE 1000ML BAG 1,000 ML IV ONE (13:30)
--- NOTE | 2021-11-05 14:09 | PHYS DOC ---
Past Medical History Past Medical History: Anxiety, Depression, Sickle Cell Disease, Other Additional Past Medical Histor: APHORESIS-REG BLOOD TRANSFUSIONS,PE,BLOOD/BONE INFECTION Past Surgical History: No Surgical History Additional Past Surgical Histo: port in right AND LEFT Smoking Status: Never Smoker Alcohol Use: Occasionally Drug Use: None General Adult EDM: Chief Complaint: PAIN CONTROL HPI: HPI: Patient is a 31 year old female with history of depression, anxiety, sickle cell disease presenting to the ED today complaining of a sharp right lower extremity pain rated at 6 out of 10, symptoms have been going on intermittently for 1 week. Patient denies any injuries, she states this pain is consistent with her sickle cell pain. She states she takes Percocet for her pain with no relief. She states she was seen in the ED 2 days ago and today would like some pain relief. She states she has an appointment with her own doctor tomorrow morning at [facility]. Review of Systems: Review of Systems: Constitutional: Denies fever or chills. [] Eyes: Denies change in visual acuity. [] HENT: Denies nasal congestion or sore throat. [] Respiratory: Denies cough or shortness of breath. [] Cardiovascular: Denies chest pain or edema. [] GI: Denies abdominal pain, nausea, vomiting, bloody stools or diarrhea. [] : Denies dysuria. [] Musculoskeletal: Reports right lower extremity pain denies back pain Integument: Denies rash. [] Neurologic: Denies headache, focal weakness or sensory changes. [] Psychiatric: Denies depression or anxiety. [] Heart Score: C/O Chest Pain: N/A Risk Factors: Risk Factors: DM, Current or recent (<one month) smoker, HTN, HLP, family history of CAD, obesity. Risk Scores: Score 0 - 3: 2.5% MACE over next 6 weeks - Discharge Home Score 4 - 6: 20.3% MACE over next 6 weeks - Admit for Clinical Observation Score 7 - 10: 72.7% MACE over next 6 weeks - Early Invasive Strategies Current Medications: Current Medications Medications (Trade) Dose Ordered Sig/Miguel Start Time Stop Time Status Last Admin Dose Admin Diphenhydramine HCl (Benadryl) 50 mg 1X ONCE 11/05/21 13:30 11/05/21 13:39 DC 11/05/21 13:47 50 MG Hydromorphone HCl (Dilaudid) 2 mg 1X ONCE 11/05/21 14:15 11/05/21 14:16 UNV Ondansetron HCl (Zofran) 4 mg 1X ONCE 11/05/21 14:15 11/05/21 14:16 UNV Sodium Chloride 1,000 ml @ 1,000 mls/hr 1X ONCE 11/05/21 13:30 11/05/21 14:29 11/05/21 13:45 1,000 MLS/HR Allergies: Allergies: Allergies Coded Allergies Type Severity Reaction Last Updated Verified ibuprofen Allergy Intermediate Itching 11/03/21 Yes morphine Allergy Intermediate ITCHING 11/03/21 Yes Physical Exam: PE: Constitutional: Well developed, well nourished, no acute distress, non-toxic appearance. [] HENT: Normocephalic, atraumatic, bilateral external ears normal, oropharynx moist, no oral exudates, nose normal. [] Eyes: PERRLA, EOMI, conjunctiva normal, no discharge. [] Neck: Normal range of motion, no tenderness, supple, no stridor. [] Cardiovascular:Heart rate regular rhythm, no murmur [] Lungs & Thorax: Bilateral breath sounds clear to auscultation [] Abdomen: Bowel sounds normal, soft, no tenderness, no masses, no pulsatile masses. [] Skin: Warm, dry, no erythema, no rash. [] Back: No tenderness, no CVA tenderness. [] Extremities: No tenderness, no cyanosis, no clubbing, ROM intact, no edema. Negative Homans' sign bilaterally. +2 bilateral pedal pulses. Neurologic: Alert and oriented X 3, normal motor function, normal sensory function, no focal deficits noted. [] Psychologic: Affect normal, judgement normal, mood normal. [] Current Patient Data: Vital Signs: Vital Signs Date Time Temp Pulse Resp B/P (MAP) Pulse Ox O2 Delivery O2 Flow Rate FiO2 11/05/21 13:47 18 99 Room Air 11/05/21 13:15 98.4 84 122/79 (93) 98.4 EKG: EKG: [] Radiology/Procedures: Radiology/Procedures: [] Course & Med Decision Making: Course & Med Decision Making Pertinent Labs and Imaging studies reviewed. (See chart for details) This a 31-year-old female patient with sickle cell presented to the ED today complaining of right lower extremity pain that she states is consistent with her sickle cell disease. Patient was in the ED 2 days ago for the same complaint. We talked about DVT possibility, she has refused venous Doppler, she states this pain is consistent with her sickle cell and would like pain management. She has an appointment with her own doctor tomorrow. She was given Dilaudid Benadryl and Zofran. Given IV fluids. Feeling better, discharged to home Jose Disclaimer: Jose Disclaimer: This electronic medical record was generated, in whole or in part, using a voice recognition dictation system. Departure Departure Impression: Primary Impression: Sickle cell pain crisis Disposition: HOME / SELF CARE / HOMELESS Condition: STABLE Referrals: NO PCP (PCP) Follow-up with your doctor tomorrow Patient Instructions: Sickle Cell Pain Crisis Additional Instructions: You were evaluated in the emergency room for sickle cell pain. Please follow-up with your doctor at [facility] as soon as you can. Come back to the ED at any point symptoms worsen QUINN VALIENTE APRN Nov 05, 2021 14:09
[2021-11-05] MEDS ORDERED: HEPARIN PF 500 UNIT/5 ML DISP.SYRIN. IVP ONE ×2 (15:16→15:45)
[2021-11-05 15:25] VITALS: BP 118/76
== END 2021-11-05 15:25 | disposition home or self-care (01) ==
LOC: ER 13:04
DX: D57.00 Hb-SS disease with crisis, unspecified (principal); Z88.5 Allergy status to narcotic agent; Z88.8 Allergy status to other drugs, medicaments and biological substances
CPT/HCPCS: 96361; 96374; 96375; 96376; 99284; J1170; J1200; J1642; J2405; J7030

== ENCOUNTER 2021-11-19 09:28 | Emergency (ER) | payer MEDICARE, MEDICAID ==
[~2021-11-19] VITALS: Ht 162.6 cm; Wt 61.3 kg
[2021-11-19] MEDS ORDERED: IV NORMAL SALINE 1000ML BAG 1,000 ML IV ONE (09:45)
[2021-11-19] MEDS ORDERED: diphenhydrAMINE HCL 25 MG CAPSULE PO ONE (10:15)
[2021-11-19] MEDS ORDERED: HYDROmorphone 2 MG/ML INJ. IVP ONE ×2 (10:15→10:45)
--- NOTE | 2021-11-19 10:15 | PHYS DOC ---
Past Medical History Past Medical History: Anxiety, Depression, Sickle Cell Disease, Other Additional Past Medical Histor: APHORESIS-REG BLOOD TRANSFUSIONS,PE,BLOOD/BONE INFECTION Past Surgical History: Other Additional Past Surgical Histo: PORT Smoking Status: Current Every Day Smoker Alcohol Use: None Drug Use: None General Adult EDM: Chief Complaint: PAIN CONTROL HPI: HPI: Patient is a 31-year-old female that presents today left arm pain. Patient states that her pain has been ongoing for 2 days, she states is similar to pain she has experienced in the past due to her sickle cell disease. Patient states she took a Percocet this morning and she said that did not help at all with her pain. Patient denies chest pain or shortness of breath or fever or chills. Review of Systems: Review of Systems: Constitutional: Denies fever or chills. [] Eyes: Denies change in visual acuity. [] HENT: Denies nasal congestion or sore throat. [] Respiratory: Denies cough or shortness of breath. [] Cardiovascular: Denies chest pain or edema. [] GI: Denies abdominal pain, nausea, vomiting, bloody stools or diarrhea. [] : Denies dysuria. [] Musculoskeletal: Left arm pain Integument: Denies rash. [] Neurologic: Denies headache, focal weakness or sensory changes. [] Endocrine: Denies polyuria or polydipsia. [] Lymphatic: Denies swollen glands. [] Psychiatric: Denies depression or anxiety. [] Heart Score: C/O Chest Pain: No Risk Factors: Risk Factors: DM, Current or recent (<one month) smoker, HTN, HLP, family history of CAD, obesity. Risk Scores: Score 0 - 3: 2.5% MACE over next 6 weeks - Discharge Home Score 4 - 6: 20.3% MACE over next 6 weeks - Admit for Clinical Observation Score 7 - 10: 72.7% MACE over next 6 weeks - Early Invasive Strategies Current Medications: Current Medications Medications (Trade) Dose Ordered Sig/Miguel Start Time Stop Time Status Last Admin Dose Admin Diphenhydramine HCl (Benadryl) 50 mg 1X ONCE 11/19/21 10:15 11/19/21 10:16 Hydromorphone HCl (Dilaudid) 2 mg 1X ONCE 11/19/21 10:15 11/19/21 10:16 Sodium Chloride 1,000 ml @ 999 mls/hr 1X ONCE 11/19/21 09:45 11/19/21 10:45 Allergies: Allergies: Allergies Coded Allergies Type Severity Reaction Last Updated Verified ibuprofen Allergy Intermediate Itching 11/03/21 Yes morphine Allergy Intermediate ITCHING 11/03/21 Yes Physical Exam: PE: Constitutional: Well developed, well nourished, no acute distress, non-toxic appearance. [] HENT: Normocephalic, atraumatic, bilateral external ears normal, oropharynx moist, no oral exudates, nose normal. [] Eyes: PERRLA, EOMI, conjunctiva normal, no discharge. [] Neck: Normal range of motion, no tenderness, supple, no stridor. [] Cardiovascular:Heart rate regular rhythm, no murmur [] Lungs & Thorax: Bilateral breath sounds clear to auscultation [] Abdomen: Bowel sounds normal, soft, no tenderness, no masses, no pulsatile masses. [] Skin: Warm, dry, no erythema, no rash. [] Back: No tenderness, no CVA tenderness. [] Extremities: Left arm range of motion is within normal limits, radial pulses 2+, no signs and symptoms of infection are noted, no edema noted, cap refill is less than 2 seconds, sensory is intact Neurologic: Alert and oriented X 3, normal motor function, normal sensory function, no focal deficits noted. [] Psychologic: Affect normal, judgement normal, mood normal. [] Current Patient Data: Labs: Laboratory Tests Test 11/19/21 10:15 White Blood Count 11.4 x10^3/uL Red Blood Count 3.72 x10^6/uL Hemoglobin 9.6 g/dL Hematocrit 28.8 % Mean Corpuscular Volume 78 fL Mean Corpuscular Hemoglobin 26 pg Mean Corpuscular Hemoglobin Concent 34 g/dL Red Cell Distribution Width 27.8 % Platelet Count 478 x10^3/uL Neutrophils (%) (Auto) 75 % Lymphocytes (%) (Auto) 18 % Monocytes (%) (Auto) 4 % Eosinophils (%) (Auto) 2 % Basophils (%) (Auto) 1 % Neutrophils # (Auto) 8.5 x10^3/uL Lymphocytes # (Auto) 2.1 x10^3/uL Monocytes # (Auto) 0.5 x10^3/uL Eosinophils # (Auto) 0.2 x10^3/uL Basophils # (Auto) 0.1 x10^3/uL Platelet Estimate Increased Polychromasia Present Hypochromasia Present Anisocytosis Present Microcytosis Present Target Cells Present Absolute Reticulocyte Count 0.068 x10^6/uL Percent Reticulocyte Count 1.8 % Immature Reticulocyte Fraction 0.44 Sodium Level 138 mmol/L Potassium Level 3.9 mmol/L Chloride Level 105 mmol/L Carbon Dioxide Level 23 mmol/L Anion Gap 10 Blood Urea Nitrogen 7 mg/dL Creatinine 0.6 mg/dL Estimated GFR (Cockcroft-Gault) 142.0 Glucose Level 92 mg/dL Calcium Level 8.4 mg/dL Current Medications Medications (Trade) Dose Ordered Sig/Miguel Route PRN Reason Start Time Stop Time Status Last Admin Dose Admin Sodium Chloride 1,000 ml @ 999 mls/hr 1X ONCE IV 11/19/21 09:45 11/19/21 10:45 DC 11/19/21 10:24 Diphenhydramine HCl (Benadryl) 50 mg 1X ONCE PO 11/19/21 10:15 11/19/21 10:16 DC 11/19/21 10:24 Hydromorphone HCl (Dilaudid) 2 mg 1X ONCE IVP 11/19/21 10:15 11/19/21 10:16 DC 11/19/21 10:25 Hydromorphone HCl (Dilaudid) 2 mg 1X ONCE IVP 11/19/21 10:45 11/19/21 10:46 DC 11/19/21 10:55 Vital Signs: Vital Signs Date Time Temp Pulse Resp B/P (MAP) Pulse Ox O2 Delivery O2 Flow Rate FiO2 11/19/21 11:52 84 20 126/74 (91) Room Air 98.0 11/19/21 11:18 Room Air 11/19/21 11:18 Room Air 11/19/21 10:57 81 16 125/82 (96) 99 Room Air 11/19/21 10:55 16 100 Room Air 11/19/21 10:25 20 11/19/21 09:38 98.0 94 18 129/86 (100) 99 Room Air 98.0 Vital Signs Date Time Temp Pulse Resp B/P (MAP) Pulse Ox O2 Delivery O2 Flow Rate FiO2 11/19/21 09:38 98.0 94 18 129/86 (100) 99 Room Air 98.0 EKG: EKG: [] Radiology/Procedures: Radiology/Procedures: [] Course & Med Decision Making: Course & Med Decision Making Pertinent Labs and Imaging studies reviewed. (See chart for details) 1115 reassessment of patient shows her pain is down to a 4 out of 10, she is requesting to go home after 2 doses of pain medication she feels she can manage it now at home with her home medications. Patient was given return precautions and she verbalized understanding of them. Patient denies chest pain or shortness of breath at this time Dragon Disclaimer: Dragon Disclaimer: This electronic medical record was generated, in whole or in part, using a voice recognition dictation system. Departure Departure Impression: Primary Impression: Sickle cell pain crisis Disposition: 01 HOME / SELF CARE / HOMELESS Condition: STABLE Referrals: NO PCP (PCP) Patient Instructions: Sickle Cell Pain Crisis Additional Instructions: Take your home Percocet as needed for pain Increase your by mouth fluids Return to the emergency department for increased pain not controlled with your home pain medication, chest pain, shortness of breath, or development of a fever. Follow-up with your primary care physician or one of the listed clinics below for further evaluation and management. [facility] [address] [place] [address] [facility] [address] [place] [address] [facility] [address] [facility] [place] [address] [facility] [address] [place] [address] [facility] [address] [place] [address] [address] [place] [address] [address] [place] [address] [facility] [address] [place] [address] [facility] [address] [place] [address] [id number] [place] [address] EARLINE [employer] SU[employer]ISTANT Nov 19, 2021 10:15
[2021-11-19 10:32] LABS: BASO # 0.1 x10^3/uL (0.0-0.2); BASO % 1 % (0-3); EOS # 0.2 x10^3/uL (0.0-0.7); EOS % 2 % (0-3); HEMATOCRIT 28.8 % (36.0-47.0); HEMOGLOBIN 9.6 g/dL (12.0-15.5); LYMPH # 2.1 x10^3/uL (1.0-4.8); LYMPH % 18 % (24-48); MEAN CORPUSCULAR HEMOGLOBIN 26 pg (25-35); MEAN CORPUSCULAR HGB CONC 34 g/dL (31-37); MEAN CORPUSCULAR VOLUME 78 fL (79-100); MONO # 0.5 x10^3/uL (0.0-1.1); MONO % 4 % (0-9); NEUT # 8.5 x10^3/uL (1.8-7.7); NEUT % 75 % (31-73); PLATELET COUNT 478 x10^3/uL (140-400); RED BLOOD COUNT 3.69 x10^6/uL (3.50-5.40); RED CELL DISTRIBUTION WIDTH 27.8 % (11.5-14.5); WHITE BLOOD COUNT 11.4 x10^3/uL (4.0-11.0)
[2021-11-19 10:52] LABS: CALCIUM 8.4 mg/dL (8.5-10.1); CREATININE 0.6 mg/dL (0.6-1.0); POTASSIUM 3.9 mmol/L (3.5-5.1)
[2021-11-19 11:04] LABS: PLT ESTIMATE INCREASED (ADEQUATE)
[2021-11-19 11:19] LABS: ANISOCYTOSIS PRESENT; HYPOCHROMIA PRESENT; MICROCYTOSIS PRESENT; POLYCHROMASIA PRESENT; TARGET CELLS PRESENT
[2021-11-19] MEDS ORDERED: HEPARIN PF 500 UNIT/5 ML DISP.SYRIN. IVP ONE (11:45)
[2021-11-19 11:52] VITALS: BP 126/74
== END 2021-11-19 11:41 | disposition home or self-care (01) ==
LOC: ER 09:28
DX: D57.00 Hb-SS disease with crisis, unspecified (principal); M79.602 Pain in left arm; F41.9 Anxiety disorder, unspecified; F32.9 Major depressive disorder, single episode, unspecified; F17.200 Nicotine dependence, unspecified, uncomplicated; Z88.6 Allergy status to analgesic agent; Z88.5 Allergy status to narcotic agent
CPT/HCPCS: 36415; 80048; 85025; 85045; 96361; 96374; 96375; 99285; J1170; J1642; J7030; Q0163

== ENCOUNTER 2021-12-08 08:13 | Emergency (ER) | payer MEDICARE, MEDICAID ==
[~2021-12-08] VITALS: Ht 162.6 cm; Wt 63.0 kg
[2021-12-08] MEDS ORDERED: IV NORMAL SALINE 1000ML BAG 1,000 ML IV ONE (08:45)
[2021-12-08] MEDS ORDERED: HYDROmorphone 2 MG/ML INJ. IVP ONE ×2 (09:00→10:45)
[2021-12-08] MEDS ORDERED: diphenhydrAMINE 50 MG/ML VIAL IVP ONE ×2 (09:00→11:00)
[2021-12-08 09:32] LABS: BASO # 0.1 x10^3/uL (0.0-0.2); BASO % 1 % (0-3); EOS # 0.4 x10^3/uL (0.0-0.7); EOS % 4 % (0-3); HEMATOCRIT 27.8 % (36.0-47.0); HEMOGLOBIN 8.8 g/dL (12.0-15.5); LYMPH # 0.7 x10^3/uL (1.0-4.8); LYMPH % 6 % (24-48); MEAN CORPUSCULAR HEMOGLOBIN 23 pg (25-35); MEAN CORPUSCULAR HGB CONC 32 g/dL (31-37); MEAN CORPUSCULAR VOLUME 71 fL (79-100); MONO # 0.8 x10^3/uL (0.0-1.1); MONO % 7 % (0-9); NEUT # 9.6 x10^3/uL (1.8-7.7); NEUT % 82 % (31-73); PLATELET COUNT 566 x10^3/uL (140-400); RED CELL DISTRIBUTION WIDTH 31.3 % (11.5-14.5); WHITE BLOOD COUNT 11.7 x10^3/uL (4.0-11.0)
[2021-12-08 09:51] LABS: CALCIUM 8.3 mg/dL (8.5-10.1); CREATININE 0.6 mg/dL (0.6-1.0); POTASSIUM 3.7 mmol/L (3.5-5.1)
[2021-12-08 09:57] LABS: ALBUMIN 3.2 g/dL (3.4-5.0); ALBUMIN/GLOBULIN RATIO 0.7 (1.0-1.7); MAGNESIUM 1.9 mg/dL (1.8-2.4); TOTAL BILIRUBIN 0.3 mg/dL (0.2-1.0); TOTAL PROTEIN 8.1 g/dL (6.4-8.2)
[2021-12-08 10:16] LABS: ANISOCYTOSIS MOD; PLT ESTIMATE INCREASED (ADEQUATE); TARGET CELLS FEW
[2021-12-08 10:17] LABS: POLYCHROMASIA SLIGHT
[2021-12-08 10:18] LABS: MICROCYTOSIS PRESENT
--- NOTE | 2021-12-08 10:48 | PHYS DOC ---
Past Medical History Past Medical History: Anxiety, Depression, Sickle Cell Disease, Other Additional Past Medical Histor: APHORESIS-REG BLOOD TRANSFUSIONS,PE,BLOOD/BONE INFECTION Past Surgical History: Other Additional Past Surgical Histo: PORT Smoking Status: Current Every Day Smoker Alcohol Use: None Drug Use: None General Adult EDM: Chief Complaint: LOWER EXT PAIN HPI: HPI: Patient is a 31 year old [f__sex] who presents with [] Review of Systems: Review of Systems: Constitutional: Denies fever or chills. [] Eyes: Denies change in visual acuity. [] HENT: Denies nasal congestion or sore throat. [] Respiratory: Denies cough or shortness of breath. [] Cardiovascular: Denies chest pain or edema. [] GI: Denies abdominal pain, nausea, vomiting, bloody stools or diarrhea. [] : Denies dysuria. [] Musculoskeletal: Denies back pain or joint pain. [] Integument: Denies rash. [] Neurologic: Denies headache, focal weakness or sensory changes. [] Endocrine: Denies polyuria or polydipsia. [] Lymphatic: Denies swollen glands. [] Psychiatric: Denies depression or anxiety. [] Heart Score: Risk Factors: Risk Factors: DM, Current or recent (<one month) smoker, HTN, HLP, family history of CAD, obesity. Risk Scores: Score 0 - 3: 2.5% MACE over next 6 weeks - Discharge Home Score 4 - 6: 20.3% MACE over next 6 weeks - Admit for Clinical Observation Score 7 - 10: 72.7% MACE over next 6 weeks - Early Invasive Strategies Current Medications: Current Medications Medications (Trade) Dose Ordered Sig/Miguel Start Time Stop Time Status Last Admin Dose Admin Diphenhydramine HCl (Benadryl) 25 mg 1X ONCE 12/08/21 09:00 12/08/21 09:01 DC 12/08/21 09:16 25 MG Hydromorphone HCl (Dilaudid) 2 mg 1X ONCE 12/08/21 10:45 12/08/21 10:46 Sodium Chloride 1,000 ml @ 1,000 mls/hr 1X ONCE 12/08/21 08:45 12/08/21 09:44 DC 12/08/21 09:17 1,000 MLS/HR Allergies: Allergies: Allergies Coded Allergies Type Severity Reaction Last Updated Verified ibuprofen Allergy Intermediate Itching 11/03/21 Yes morphine Allergy Intermediate ITCHING 11/03/21 Yes Physical Exam: PE: Constitutional: Well developed, well nourished, no acute distress, non-toxic appearance. [] HENT: Normocephalic, atraumatic, bilateral external ears normal, oropharynx moist, no oral exudates, nose normal. [] Eyes: PERRLA, EOMI, conjunctiva normal, no discharge. [] Neck: Normal range of motion, no tenderness, supple, no stridor. [] Cardiovascular:Heart rate regular rhythm, no murmur [] Lungs & Thorax: Bilateral breath sounds clear to auscultation [] Abdomen: Bowel sounds normal, soft, no tenderness, no masses, no pulsatile masses. [] Skin: Warm, dry, no erythema, no rash. [] Back: No tenderness, no CVA tenderness. [] Extremities: No tenderness, no cyanosis, no clubbing, ROM intact, no edema. [] Neurologic: Alert and oriented X 3, normal motor function, normal sensory function, no focal deficits noted. [] Psychologic: Affect normal, judgement normal, mood normal. [] Current Patient Data: Labs: Laboratory Tests Test 12/08/21 09:15 White Blood Count 11.7 x10^3/uL (4.0-11.0) H Red Blood Count 3.89 x10^6/uL (3.50-5.70) Hemoglobin 8.8 g/dL (12.0-15.5) L Hematocrit 27.8 % (36.0-47.0) L Mean Corpuscular Volume 71 fL (79-100) L Mean Corpuscular Hemoglobin 23 pg (25-35) L Mean Corpuscular Hemoglobin Concent 32 g/dL (31-37) Red Cell Distribution Width 31.3 % (11.5-14.5) H Platelet Count 566 x10^3/uL (140-400) H Neutrophils (%) (Auto) 82 % (31-73) H Lymphocytes (%) (Auto) 6 % (24-48) L Monocytes (%) (Auto) 7 % (0-9) Eosinophils (%) (Auto) 4 % (0-3) H Basophils (%) (Auto) 1 % (0-3) Neutrophils # (Auto) 9.6 x10^3/uL (1.8-7.7) H Lymphocytes # (Auto) 0.7 x10^3/uL (1.0-4.8) L Monocytes # (Auto) 0.8 x10^3/uL (0.0-1.1) Eosinophils # (Auto) 0.4 x10^3/uL (0.0-0.7) Basophils # (Auto) 0.1 x10^3/uL (0.0-0.2) Platelet Estimate Increased (ADEQUATE) Polychromasia Slight Anisocytosis Mod Microcytosis Present Target Cells Few Absolute Reticulocyte Count 0.080 x10^6/uL (0.020-0.120) Percent Reticulocyte Count 2.1 % (0.5-2.3) Immature Reticulocyte Fraction 0.51 (0.20-0.60) Sodium Level 141 mmol/L (136-145) Potassium Level 3.7 mmol/L (3.5-5.1) Chloride Level 107 mmol/L (98-107) Carbon Dioxide Level 23 mmol/L (21-32) Anion Gap 11 (6-14) Blood Urea Nitrogen 7 mg/dL (7-20) Creatinine 0.6 mg/dL (0.6-1.0) Estimated GFR (Cockcroft-Gault) 142.0 BUN/Creatinine Ratio 12 (6-20) Glucose Level 91 mg/dL (70-99) Calcium Level 8.3 mg/dL (8.5-10.1) L Magnesium Level 1.9 mg/dL (1.8-2.4) Total Bilirubin 0.3 mg/dL (0.2-1.0) Aspartate Amino Transferase (AST) 18 U/L (15-37) Alanine Aminotransferase (ALT) 10 U/L (14-59) L Alkaline Phosphatase 67 U/L (46-116) Total Protein 8.1 g/dL (6.4-8.2) Albumin 3.2 g/dL (3.4-5.0) L Albumin/Globulin Ratio 0.7 (1.0-1.7) L Laboratory Tests 12/08/21 09:15 Laboratory Tests 12/08/21 09:15 Vital Signs: Vital Signs Date Time Temp Pulse Resp B/P (MAP) Pulse Ox O2 Delivery O2 Flow Rate FiO2 12/08/21 09:16 16 96 Room Air 12/08/21 08:25 98.7 77 123/75 (91) 98.7 EKG: EKG: [] Radiology/Procedures: Radiology/Procedures: [] Course & Med Decision Making: Course & Med Decision Making Pertinent Labs and Imaging studies reviewed. (See chart for details) [] Dragon Disclaimer: Dragon Disclaimer: This electronic medical record was generated, in whole or in part, using a voice recognition dictation system. 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 LEEANN MARTELL DO December 08, 2021 10:48
[2021-12-08] MEDS ORDERED: HEPARIN PF 500 UNIT/5 ML DISP.SYRIN. IVP ONE (11:30)
[2021-12-08 11:40] VITALS: BP 122/68
== END 2021-12-08 11:43 | disposition home or self-care (01) ==
LOC: ER 08:13
DX: D57.00 Hb-SS disease with crisis, unspecified (principal); F41.9 Anxiety disorder, unspecified; F32.9 Major depressive disorder, single episode, unspecified; F17.200 Nicotine dependence, unspecified, uncomplicated; Z88.6 Allergy status to analgesic agent; Z88.5 Allergy status to narcotic agent
CPT/HCPCS: 36415; 80053; 83735; 85025; 85045; 96361; 96374; 96375; 96376; 99285; J1170; J1200; J7030

== ENCOUNTER 2021-12-17 17:51 | Emergency (ER) | payer MEDICARE, MEDICAID ==
[~2021-12-17] VITALS: Ht 162.6 cm; Wt 63.4 kg
[2021-12-17] MEDS ORDERED: diphenhydrAMINE 50 MG/ML VIAL IVP ONE ×2 (20:00→21:00)
[2021-12-17] MEDS ORDERED: HYDROmorphone 2 MG/ML INJ. IVP ONE ×2 (20:00→21:00)
[2021-12-17] MEDS ORDERED: IV RINGERS,LACTATED 1000ML 1,000 ML IV ONE (20:30)
--- NOTE | 2021-12-17 20:50 | PHYS DOC ---
Past Medical History Past Medical History: Anxiety, Depression, Sickle Cell Disease, Other Additional Past Medical Histor: APHORESIS-REG BLOOD TRANSFUSIONS,PE,BLOOD/BONE INFECTION Past Surgical History: Other Additional Past Surgical Histo: PORT Smoking Status: Never Smoker Alcohol Use: Occasionally Drug Use: None General Adult EDM: Chief Complaint: PAIN CONTROL HPI: HPI: Patient is a 31 year old female well-known to the emergency department with past medical history of sickle cell anemia who presents with bilateral lower extremity pain. This is typical for patient's pain crises. She rates her pain 8/10 for the past 2 days. She has taken two 103 25 Percocets today without significant pain relief. Patient's last pain crisis was 9 days ago. Review of Systems: Review of Systems: Constitutional: Denies fever, chills or generalized weakness Eyes: Denies change in visual acuity, visual field deficits or discharge HENT: Denies ear pain, nasal congestion or sore throat Respiratory: Denies cough or shortness of breath Cardiovascular: Denies chest pain, palpitations or edema GI: Denies abdominal pain, nausea, vomiting, bloody stools or diarrhea : Denies dysuria or hematuria Musculoskeletal: See HPI Integument: Denies rash or other skin lesion Neurologic: Denies headache, focal weakness or sensory changes Heart Score: C/O Chest Pain: No Current Medications: Current Medications Medications (Trade) Dose Ordered Sig/Miguel Route PRN Reason Start Time Stop Time Status Last Admin Dose Admin Hydromorphone HCl (Dilaudid) 1 mg 1X ONCE IVP 12/17/21 20:00 12/17/21 20:01 DC 12/17/21 20:37 Diphenhydramine HCl (Benadryl) 25 mg 1X ONCE IVP 12/17/21 20:00 12/17/21 20:01 DC 12/17/21 20:37 Ringer's Solution 1,000 ml @ 1,000 mls/hr 1X ONCE IV 12/17/21 20:30 12/17/21 21:29 DC 12/17/21 20:41 Diphenhydramine HCl (Benadryl) 25 mg 1X ONCE IVP 12/17/21 21:00 12/17/21 21:01 DC 12/17/21 21:27 Hydromorphone HCl (Dilaudid) 2 mg 1X ONCE IVP 12/17/21 21:00 12/17/21 21:01 DC 12/17/21 21:27 Heparin Sodium (Porcine) (Hep Lock Adult) 500 unit 1X ONCE IVP 12/17/21 21:30 12/17/21 21:31 DC 12/17/21 22:01 Allergies: Allergies: Allergies Coded Allergies Type Severity Reaction Last Updated Verified ibuprofen Allergy Intermediate Itching 11/03/21 Yes morphine Allergy Intermediate ITCHING 11/03/21 Yes Physical Exam: PE: Constitutional: Well developed, well nourished, non-toxic appearance. HENT: Normocephalic, atraumatic, bilateral external ears normal, nose normal. Eyes: EOMI, conjunctiva normal, no discharge. Neck: Normal range of motion, no stridor. Skin: Warm, dry, no erythema, no rash. Back: No step-off, no tenderness. Extremities: No tenderness, no cyanosis, no clubbing, ROM intact, no edema, no deformities. Neurologic: Alert and oriented x4, normal motor function, normal sensory function, no focal deficits noted. Current Patient Data: Vital Signs: Vital Signs Date Time Temp Pulse Resp B/P (MAP) Pulse Ox O2 Delivery O2 Flow Rate FiO2 12/17/21 22:00 76 15 113/73 (86) 99 12/17/21 21:45 78 11 107/71 (83) 99 12/17/21 21:15 68 12 114/69 (84) 100 12/17/21 20:45 78 10 125/81 (96) 100 12/17/21 20:15 80 11 102/66 (78) 100 12/17/21 19:45 80 11 106/66 (79) 100 12/17/21 19:15 84 13 108/68 (81) 100 12/17/21 18:34 98.3 18 120/70 (87) 99 Room Air 98.3 Course & Med Decision Making: Course & Med Decision Making Pertinent Labs and Imaging studies reviewed. (See chart for details) Patient is a 31-year-old female well-known to the emergency department presenting with typical sickle cell pain crisis. Patient symptoms are somewhat improved after 1 Dilaudid. Will repeat at 2 Dilaudid. After patient receives total of 3 Dilaudid and finishes IV fluids, she feels comfortable returning home. Return precautions are provided. She is instructed to follow-up with her agricultural researcher. Patient understands and is agreeable to discharge plan. Jose Disclaimer: Jose Disclaimer: This electronic medical record was generated, in whole or in part, using a voice recognition dictation system. Departure Departure Impression: Primary Impression: Sickle cell pain crisis Disposition: 01 HOME / SELF CARE / HOMELESS Condition: IMPROVED Referrals: NO PCP (PCP) Patient Instructions: Sickle Cell Pain Crisis, [id number] Additional Instructions: EMERGENCY DEPARTMENT GENERAL DISCHARGE INSTRUCTIONS Thank you for coming to [facility] Emergency Department (ED) today and trusting us with you care. We trust that you had a positive experience in our Emergency Department. If you wish to speak to the department management, you may call the director at . YOUR FOLLOW UP INSTRUCTIONS ARE FOLLOWS: 1. Follow up with your primary care doctor. If you do not have a primary doctor, please ask for a resource list of physicians or clinics that may be able to assist you with follow up care. 2. The emergency provider has interpreted your imaging studies, if any were ordered. The radiology radiologist chief of breast imaging also reviewed them. If there is a change in the findings, you will be notified in 48 hours when at all possible. 3. If a lab test or culture has been done, your results will be reviewed and you will be notified if you need a change in treatment. 4. Follow instructions verbalized to you and refer to the printouts if needed. ADDITIONAL INSTRUCTIONS AND INFORMATION: 1. Your care today has been supervised by a physician who is specially trained in emergency care. Many problems require more than one evaluation for a complete diagnosis and treatment. We recommend that you schedule your follow up appointment as recommended to ensure complete treatment of you illness or injury. If you are unable to obtain follow up care and continue to have a problem, or if your condition worsens, we recommend that you return to the ED. 2. We are not able to safely determine your condition over the phone nor are we able to give sound medical advice over the phone. For these safety reasons, if you call for medical advice we will ask you to come to the ED for further evaluation. 3. If you have any questions regarding these discharge instructions please call the ED at . SAFETY INFORMATION: In the interest of safety, wellness, and injury prevention; we encourage you to wear your seat belt, if you smoke; quite smoking, and we encourage family to use a protective helmet for bicycling and other sporting events that present an increased risk for head injury. IF YOUR SYMPTOMS WORSEN OR NEW SYMPTOMS DEVELOP, OR YOU HAVE CONCERNS ABOUT YOUR CONDITION; OR IF YOUR CONDITION WORSENS WHILE YOU ARE WAITING FOR YOUR FOLLOW UP APPOINTMENT; EITHER CONTACT YOUR PRIMARY CARE DOCTOR, THE PHYSICIAN WHOSE NAME AND NUMBER YOU WERE GIVEN, OR RETURN TO THE ED IMMEDIATELY. ROWENA BEASLEY December 17, 2021 20:50
[2021-12-17] MEDS ORDERED: HEPARIN PF 500 UNIT/5 ML DISP.SYRIN. IVP ONE (21:30)
[2021-12-17 22:00] VITALS: BP 113/73
== END 2021-12-17 22:12 | disposition home or self-care (01) ==
LOC: ER 17:51
DX: D57.00 Hb-SS disease with crisis, unspecified (principal); Z88.6 Allergy status to analgesic agent; Z88.5 Allergy status to narcotic agent
CPT/HCPCS: 96361; 96374; 96375; 96376; 99285; J1170; J1200; J1642; J7120